=== PATIENT | male | born 1940 | race Caucasian/White ===

== ENCOUNTER → 2016-11-17 | Outpatient (CLI) | payer MEDICARE, OTHER ==
[2014-10-03 16:46] VITALS: BP 179/107
[~2016-11-17] MED LIST: ASPI-482 PO; EZET10TA3 PO; FISH1CAP PO; NIAC500T9 PO; OLMESARTAN 10 MG; SOTA80TA PO; TEMA15CA PO; WARF5TAB7 PO
--- NOTE | 2016-11-17 12:46 | RAD ---
PROCEDURE MR of the left knee HISTORY Chronic knee pain. COMPARISON None TECHNIQUE Routine multiplanar sequences are obtained. FINDINGS Degenerative tear of the medial meniscus. No evidence of a lateral meniscal tear. Anterior and posterior cruciate ligaments are intact. Medial collateral ligament is intact. Iliotibial band unremarkable. Fibular collateral ligament, biceps femoris tendon and popliteus tendon are intact. The extensor mechanism is intact. Severe chondromalacia at the medial joint compartment. Mild chondromalacia at the medial patella. Moderate to severe chondromalacia at the lower femoral trochlea. There is an intraosseous cyst at the lateral tibial plateau adjacent to the tibiofibular joint. There is also a small extraosseous component of the cyst. Small Alves cyst. Mild prepatellar subcutaneous edema. No bone destruction or acute fracture. IMPRESSION 1. Primary osteoarthritis. 2. Medial meniscal tear. Electronically signed by: Paul Flores MD (Nov 17, 2016 12:45:22)
== END | disposition home or self-care (01) ==
LOC: MRI 11:16
PROVIDERS: ATTEND Orthopaedic Surgery
DX: M17.12 Unilateral primary osteoarthritis, left knee (principal); S83.242A Other tear of medial meniscus, current injury, left knee, initial encounter
CPT/HCPCS: 73721

== ENCOUNTER → 2016-11-28 | Outpatient (CLI) | payer MEDICARE, OTHER ==
[2014-10-03 16:46] VITALS: BP 179/107
[~2016-11-28] MED LIST changes: +BISA-42 PO; +FLUT16SP NS; +FLUT1DIS3 IH; +OLME20TA PO; +OXYC5TAB PO; +PROVENTIL HFA6.7 GM IH
[2016-11-28 13:43] LABS: BASO % 1 % (0-3); EOS % 5 % (0-3); HEMATOCRIT 45.8 % (39.0-53.0); HEMOGLOBIN 15.1 g/dL (13.0-17.5); LYMPH # 1.4 x10^3/uL (1.0-4.8); LYMPH % 26 % (24-48); MEAN CORPUSCULAR HEMOGLOBIN 31 pg (25-35); MEAN CORPUSCULAR HGB CONC 33 g/dL (31-37); MEAN CORPUSCULAR VOLUME 94 fL (79-100); MONO % 7 % (0-9); NEUT % 61 % (31-73); PLATELET COUNT 165 x10^3/uL (140-400); RED CELL DISTRIBUTION WIDTH 14.2 % (11.5-14.5); WHITE BLOOD COUNT 5.5 x10^3/uL (4.0-11.0)
[2016-11-28 13:49] LABS: CALCIUM 8.6 mg/dL (8.5-10.1); CREATININE 1.1 mg/dL (0.7-1.3); GFR 65.3; POTASSIUM 4.3 mmol/L (3.5-5.1)
--- NOTE | 2016-11-28 14:17 | EKG ---
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 NON-SPECIFIC ST/T CHANGES Electronically Signed On 12-08-2016 8:29:10 CDT by Klever Rosas
== END | disposition home or self-care (01) ==
LOC: SURGPAT 12:56
PROVIDERS: ATTEND Orthopaedic Surgery
DX: S83.242D Other tear of medial meniscus, current injury, left knee, subsequent encounter (principal); W19.XXXA Unspecified fall, initial encounter; Y93.89 Activity, other specified; Y92.89 Other specified places as the place of occurrence of the external cause; Y99.8 Other external cause status
CPT/HCPCS: 36415; 80048; 85027; 93005

== ENCOUNTER 2016-12-05 05:47 | Day surgery (SDC) | payer MEDICARE, OTHER ==
[~2016-12-05] VITALS: Ht 175.3 cm; Wt 105.7 kg
[~2016-12-05 05:47] MED LIST changes: -OXYC5TAB PO
[2016-12-05] MEDS ORDERED: CEFAZOLIN 2GM PREMIX 50 ML IV PRN (06:00)
[2016-12-05] MEDS ORDERED: LIDOCAINE 1% 1 ML SYRINGE. ID PRN (07:00)
[2016-12-05] MEDS ORDERED: FENTANYL PF 100 MCG/2 ML VIAL. IV PRN ×2 (07:00)
[2016-12-05] MEDS ORDERED: IV RINGERS,LACTATED 1000ML 1,000 ML IV SCH (07:00)
[2016-12-05] MEDS ORDERED: PROCHLORPERAZINE 10 MG/2 ML VIAL. IV PRN (07:00)
[2016-12-05] MEDS ORDERED: DEXAMETHASONE SOD PHOS 20 MG/5 ML VIAL. ONE (07:21)
[2016-12-05] MEDS ORDERED: FENTANYL PF 100 MCG/2 ML VIAL. ONE (07:21)
[2016-12-05] MEDS ORDERED: ONDANSETRON PF 4 MG/2 ML VIAL. ONE (07:21)
[2016-12-05] MEDS ORDERED: SEVOFLURANE 61 TO 120 MINUTES. IH ONE (07:21)
[2016-12-05] MEDS ORDERED: LIDOCAINE 2% 100 MG/5 ML SYRINGE. ONE (07:21)
[2016-12-05] MEDS ORDERED: PROPOFOL 20 ML IV ONE (07:21)
[2016-12-05] MEDS ORDERED: MIDAZOLAM HCL/PF 2 MG/2 ML VIAL. ONE (07:23)
[2016-12-05] MEDS ORDERED: PHENYLEPHRINE in 0.9% NACL PF 1 MG/10 ML DISP.SYRIN. IV ONE (07:49)
[2016-12-05] MEDS ORDERED: BUPIVACAINE MPF 0.5% 30 ML VIAL. ONE (08:11)
--- NOTE | 2016-12-05 08:58 | PDOC ---
BRIEF OPERATIVE NOTE Date: Dec 05, 2016 Pre-Op Diagnosis medial meniscus tear Post-Op Diagnosis same Procedure Performed left knee scope partial medial menisectomy Surgeon [place] Anesthesia Type: General Blood Loss 2cc Findings above Complications none FRANKY DICKENS MD Dec 05, 2016 08:58
--- NOTE | 2016-12-05 09:00 | DISCH ---
DISCHARGE INSTRUCTIONS Condition on Discharge Condition on Discharge: Stable Activity After Discharge Activity Instructions for Disc: Activity as tolerated Weight Bearing Status after Di: Full weight bearing Diet after Discharge Diet after Discharge: Regular Wound Incision Care Wound/Incision Care: Ice to area for comfort, Change dressing Other wound/incision instructi: remove dressing 2 days may then shower Contacting the DRKaycee after DC Call your doctor for: Concerns you may have Follow-Up Follow up with: [facility] 7-10 days FRANKY DICKENS MD Dec 05, 2016 09:00
[2016-12-05] MEDS ORDERED: OXYC5TAB PO (09:04)
[2016-12-05] MEDS ORDERED: OXYCODONE IR 5 MG TABLET. PO PRN (09:30)
[2016-12-05 09:39] VITALS: BP 155/93
--- NOTE | 2016-12-08 12:14 | OP ---
DATE OF SURGERY: 12/05/2016 PREOPERATIVE DIAGNOSIS: Medial meniscus tear. POSTOPERATIVE DIAGNOSIS: Medial meniscus tear. PROCEDURE: Left knee arthroscopy, partial medial meniscectomy. SURGEON: Jovani Lindo M.D. ANESTHESIA: General. ESTIMATED BLOOD LOSS: 5 mL. COMPLICATIONS: None. OPERATIVE INDICATIONS: The patient is a 76-year-old male with a sudden onset of left knee pain, unresponsive to nonoperative treatment. MRI confirmed the clinical suspicion of meniscus tear. I had gone over with him the typical operative arthroscopic treatment of this condition and the fact that while typically the mechanical aspect of the meniscus tear is well treated and symptoms typically resolved, any degenerative changes of course cannot be done with this procedure and would need to be treated as ongoing symptoms required. We also covered the possibility of nerve or blood vessel damage, infection, continued pain as above, medical, or other anesthetic complications including blood clots. It is noted that he is on Coumadin, which was stopped with the current procedure. All his questions were answered. Consent was obtained and he agrees to proceed with operative evaluation and treatment. DESCRIPTION OF PROCEDURE: The patient was identified, procedure verified, patient placed in the supine position on the operating table. After adequate amounts of general endotracheal anesthesia were administered, the left lower extremity was prepped and draped in the standard sterile fashion and after timeout was performed, the patient and procedure identified and verified, thigh tourniquet was inflated to 350 mmHg. A lateral portal was established, medial portal established using spinal needle localization, and the knee joint was systematically examined. Overall, patellofemoral articulation was noted to be in good condition with good tracking, minimal chondromalacia, no loose bodies noted in the gutters or suprapatellar pouch. As expected, complex tear of posterior horn of medial meniscus was found involving the posterior horn and root area. The meniscus was trimmed back to a stable rim of tissue. Eliminating any stress risers, approximately 50-60% of the meniscus tissue was in fact removed. He did have some grade 3 chondromalacia medial femoral condyle, but no full-thickness defect noted. ACL was probed and found to be intact as was the lateral meniscus. The knee was again toured to make sure no loose bodies or other pathology noted. Joint was drained of arthroscopic fluid. Portals closed with nylon suture. He was infused with 30 mL of 0.5% plain Marcaine. Sterile compressive dressings were applied. Toes were noted to be warm and pink following deflation of the tourniquet. The patient was extubated and transferred to postop holding in stable condition having tolerated the procedure well. JOVANI LINDO MD DR: UMM/farideh JOB#: [id number] / [id number] ROALND Brar MD
== END 2016-12-05 10:30 | disposition home or self-care (01) ==
LOC: SURG 05:47
PROVIDERS: ATTEND Orthopaedic Surgery
DX: S83.232A Complex tear of medial meniscus, current injury, left knee, initial encounter (principal); M94.20 Chondromalacia, unspecified site; E78.00 Pure hypercholesterolemia, unspecified; I48.91 Unspecified atrial fibrillation; I10 Essential (primary) hypertension; J44.9 Chronic obstructive pulmonary disease, unspecified; M19.90 Unspecified osteoarthritis, unspecified site; X58.XXXA Exposure to other specified factors, initial encounter; Y93.9 Activity, unspecified; Y92.9 Unspecified place or not applicable
CPT/HCPCS: 29881; J0690; J1100; J2250; J2370; J2405; J2704; J3010; J3490

== ENCOUNTER → 2017-08-28 | Outpatient (CLI) | payer MEDICARE, OTHER | END | disposition home or self-care (01) | LOC: CT 12:11 | DX: J84.89 Other specified interstitial pulmonary diseases (principal); J98.11 Atelectasis | CPT/HCPCS: 71250 ==

== ENCOUNTER → 2017-09-18 | Outpatient (CLI) | payer MEDICARE, OTHER ==
[2017-09-18] MEDS: REGADENOSON 0.4 MG/5 ML DISP.SYRIN. IV ×2 (11:04)
== END | disposition home or self-care (01) ==
LOC: NM 08:35
DX: I25.119 Atherosclerotic heart disease of native coronary artery with unspecified angina pectoris (principal); M54.6 Pain in thoracic spine; J44.9 Chronic obstructive pulmonary disease, unspecified; I10 Essential (primary) hypertension; Z95.0 Presence of cardiac pacemaker; Z87.891 Personal history of nicotine dependence; Z79.01 Long term (current) use of anticoagulants
CPT/HCPCS: 78452; 93017; 96374; 96375; 96376; A9500; J2785

== ENCOUNTER 2017-11-08 10:08 | Inpatient (IN) | payer MEDICARE, OTHER ==
[2017-11-08 10:27] LABS: ADD MAN DIFF? NO
[2017-11-08 10:33] LABS: BASO % 1 % (0-3); EOS # 0.3 x10^3/uL (0.0-0.7); EOS % 5 % (0-3); HEMATOCRIT 48.3 % (39.0-53.0); HEMOGLOBIN 16.2 g/dL (13.0-17.5); LYMPH % 17 % (24-48); MEAN CORPUSCULAR HEMOGLOBIN 32 pg (25-35); MEAN CORPUSCULAR HGB CONC 34 g/dL (31-37); MEAN CORPUSCULAR VOLUME 94 fL (79-100); MONO # 0.4 x10^3/uL (0.0-1.1); MONO % 7 % (0-9); NEUT % 71 % (31-73); PLATELET COUNT 187 x10^3/uL (140-400); RED BLOOD COUNT 5.12 x10^6/uL (4.30-5.70); RED CELL DISTRIBUTION WIDTH 13.8 % (11.5-14.5); WHITE BLOOD COUNT 5.6 x10^3/uL (4.0-11.0)
[2017-11-08 10:38] LABS: ANION GAP 7 (6-14); BLOOD UREA NITROGEN 17 mg/dL (8-26); CALCIUM 9.1 mg/dL (8.5-10.1); CARBON DIOXIDE 32 mmol/L (21-32); CHLORIDE 103 mmol/L (98-107); CREATININE 1.1 mg/dL (0.7-1.3); GFR 65.1; GLUCOSE 105 mg/dL (70-99); POTASSIUM 3.8 mmol/L (3.5-5.1); SODIUM 142 mmol/L (136-145)
[2017-11-08 10:39] LABS: INR 1.6 (0.8-1.1); PROTHROMBIN TIME PATIENT 18.6 SEC (11.7-14.0)
[2017-11-08 10:44] LABS: ALBUMIN 4.1 g/dL (3.4-5.0); ALK PHOS 80 U/L (46-116); ALT (SGPT) 32 U/L (16-63); AST (SGOT) 21 U/L (15-37); DIRECT BILIRUBIN 0.2 mg/dL (0.0-0.2); LIPASE 58 U/L (73-393); MAGNESIUM 2.1 mg/dL (1.8-2.4); TOTAL BILIRUBIN 1.1 mg/dL (0.2-1.0); TOTAL PROTEIN 7.6 g/dL (6.4-8.2)
[2017-11-08 10:52] LABS: TROPONINI < 0.017 ng/mL (0.000-0.055)
[2017-11-08 10:54] LABS: NT-PRO BNP 212 pg/mL (0-449)
[2017-11-08 10:54] LABS: CKMB INDEX 0.8 % (0-4); CKMB MASS 1.2 ng/mL (0.0-3.6); CREATINE KINASE 148 U/L (39-308)
[2017-11-08] MEDS ORDERED: ONDANSETRON PF 4 MG/2 ML VIAL. IV (11:45)
[2017-11-08] MEDS: ASPIRIN 325 MG TABLET PO (12:21)
[2017-11-08 15:10] LABS: TROPONINI < 0.017 ng/mL (0.000-0.055)
[2017-11-08] MEDS ORDERED: BISACODYL 5 MG TABLET.DR. PO (17:00)
[2017-11-08] MEDS ORDERED: NON FORMULARY ITEM (Albuterol Sulfate (Proventil Hfa Inhaler) 1 PUFF) IH (17:00)
[2017-11-08] MEDS ORDERED: ALBUTEROL SULFATE 2.5 MG/3 ML NEBU. NEB (17:15)
[2017-11-08] MEDS: WARFARIN 4 MG TABLET. PO (17:32)
[2017-11-08 18:49] LABS: TROPONINI < 0.017 ng/mL (0.000-0.055)
[2017-11-08] MEDS: FLUTICASONE 50MCG/NASAL SPRAY 16GM BOTTLE. NS (21:00)
[2017-11-08] MEDS: SOTALOL 80 MG TABLET. PO (21:12)
[2017-11-08] MEDS: TEMAZEPAM 15 MG CAPSULE PO (21:12)
[2017-11-09 08:31] LABS: ADD MAN DIFF? NO
[2017-11-09 08:38] LABS: BASO % 1 % (0-3); EOS # 0.3 x10^3/uL (0.0-0.7); EOS % 5 % (0-3); HEMATOCRIT 45.6 % (39.0-53.0); HEMOGLOBIN 15.4 g/dL (13.0-17.5); LYMPH # 1.3 x10^3/uL (1.0-4.8); LYMPH % 23 % (24-48); MEAN CORPUSCULAR HEMOGLOBIN 32 pg (25-35); MEAN CORPUSCULAR HGB CONC 34 g/dL (31-37); MEAN CORPUSCULAR VOLUME 93 fL (79-100); MONO # 0.5 x10^3/uL (0.0-1.1); MONO % 9 % (0-9); NEUT # 3.5 x10^3uL (1.8-7.7); NEUT % 63 % (31-73); PLATELET COUNT 182 x10^3/uL (140-400); RED BLOOD COUNT 4.88 x10^6/uL (4.30-5.70); WHITE BLOOD COUNT 5.7 x10^3/uL (4.0-11.0)
[2017-11-09 09:06] LABS: INR 1.7 (0.8-1.1); PROTHROMBIN TIME PATIENT 18.9 SEC (11.7-14.0)
[2017-11-09 09:08] LABS: ANION GAP 6 (6-14); BLOOD UREA NITROGEN 12 mg/dL (8-26); CALCIUM 8.8 mg/dL (8.5-10.1); CARBON DIOXIDE 31 mmol/L (21-32); CHLORIDE 105 mmol/L (98-107); CHOLESTEROL 151 mg/dL (0-200); CREATININE 0.9 mg/dL (0.7-1.3); GLUCOSE 109 mg/dL (70-99); HDLC 35 mg/dL (40-60); LDLC 80 mg/dL (0-100); NON-HDL CHOLESTEROL 116 mg/dL (0-129); POTASSIUM 3.8 mmol/L (3.5-5.1); SODIUM 142 mmol/L (136-145); TRIGLYCERIDES 179 mg/dL (0-150); VLDLC 36 mg/dL (0-40)
[2017-11-09 09:19] LABS: CHOLESTEROL/HDL RATIO 4.3
[2017-11-09] MEDS: EZETIMIBE 10 MG TABLET. PO (12:23)
[2017-11-09] MEDS: LOSARTAN POTASSIUM 50 MG TABLET. PO (12:24)
[2017-11-09] MEDS: ASPIRIN ENTERIC COATED 81 MG TABLET.DR. PO (12:24)
[2017-11-09] MEDS: SOTALOL 80 MG TABLET. PO ×2 (12:24→21:36)
[2017-11-09] MEDS: FLUTICASONE 50MCG/NASAL SPRAY 16GM BOTTLE. NS ×2 (17:29→21:35)
[2017-11-09] MEDS: ALPRAZolam 0.5 MG TABLET PO (17:41)
[2017-11-09] MEDS: WARFARIN 4 MG TABLET. PO (17:42)
[2017-11-09] MEDS: TEMAZEPAM 15 MG CAPSULE PO (21:35)
[2017-11-10] MEDS: EZETIMIBE 10 MG TABLET. PO (07:16)
[2017-11-10] MEDS: ASPIRIN ENTERIC COATED 81 MG TABLET.DR. PO (07:16)
[2017-11-10] MEDS: ALPRAZolam 0.5 MG TABLET PO (07:16)
[2017-11-10] MEDS: FLUTICASONE 50MCG/NASAL SPRAY 16GM BOTTLE. NS (07:17)
[2017-11-10] MEDS: LOSARTAN POTASSIUM 50 MG TABLET. PO (07:24)
[2017-11-10] MEDS: SOTALOL 80 MG TABLET. PO (07:24)
[2017-11-10] MEDS: WARFARIN 4 MG TABLET. PO (16:05)
== END 2017-11-10 19:00 | disposition home or self-care (01) | DRG 303 ==
LOC: ER 10:08 → 5 NORTH 11:00
DX: I25.119 Atherosclerotic heart disease of native coronary artery with unspecified angina pectoris (principal); I48.91 Unspecified atrial fibrillation; E66.9 Obesity, unspecified; Z68.31 Body mass index [BMI] 31.0-31.9, adult; F41.9 Anxiety disorder, unspecified; I10 Essential (primary) hypertension; G47.00 Insomnia, unspecified; I25.2 Old myocardial infarction; Z79.01 Long term (current) use of anticoagulants; Z82.49 Family history of ischemic heart disease and other diseases of the circulatory system; Z85.820 Personal history of malignant melanoma of skin; Z95.0 Presence of cardiac pacemaker; Z95.1 Presence of aortocoronary bypass graft; Z95.5 Presence of coronary angioplasty implant and graft; Z88.6 Allergy status to analgesic agent; Z88.1 Allergy status to other antibiotic agents; Z88.8 Allergy status to other drugs, medicaments and biological substances
CPT/HCPCS: 36415; 71045; 78452; 80048; 80061; 80076; 82553; 83690; 83735; 83880; 84484; 85025; 85610; 93005; 93017; 96374; 96376; 99285; 99285-25; A9500

== ENCOUNTER → 2018-09-24 | Outpatient (CLI) | payer MEDICARE, OTHER ==
[2017-11-09 23:00] VITALS: BP 144/72
[~2018-09-24] MED LIST changes: +ALBU2.5V8 IH; +ALPR0.5T PO; +EZET10TA18 PO; -EZET10TA3 PO; -OLME20TA PO; +OLME20TA17 PO; +OXYC5TAB4 PO; -PROVENTIL HFA6.7 GM IH; -SOTA80TA PO; +SOTA80TA48 PO; +WARF-31 PO; -WARF5TAB7 PO
--- NOTE | 2018-09-24 11:15 | RAD ---
Examination: CT CHEST WO CONTRAST History: F/U LUNG NODULES PREV SENT Comparison/Correlation: 08/28/2017 CT chest without contrast Findings: Axial images of chest were obtained without contrast. Sagittal and coronal reformatted images were provided. Dual-lead left-sided pacemaker and sternal wires are present. No enlarged thoracic lymph nodes. Coronary arterial calcification is present. Stent material involving the proximal left anterior descending artery distribution appears be present. No pericardial effusion. No pleural effusion. Calcified granulomas present at the lateral left upper lung field. Mild bilateral lower lobe bronchiectasis is present. Left lower lobe calcified granuloma is present. A few punctate left lower lobe nodules are present and these are stable. Partially visualized upper abdomen is unremarkable. Epicardial leads are present. Impression: Stable pulmonary nodules. No new or suspicious pulmonary nodule. Electronically signed by: Hugh Medina MD (09/24/2018 11:11 AM) [facility]
== END | disposition home or self-care (01) ==
LOC: CT 09:51
PROVIDERS: ATTEND Internal Medicine Critical Care Medicine
DX: R91.1 Solitary pulmonary nodule (principal); I25.10 Atherosclerotic heart disease of native coronary artery without angina pectoris; Z88.8 Allergy status to other drugs, medicaments and biological substances
CPT/HCPCS: 71250

== ENCOUNTER → 2019-01-19 | Outpatient (CLI) | payer MEDICARE, OTHER ==
[2017-11-09 23:00] VITALS: BP 144/72
--- NOTE | 2019-01-19 11:59 | CARD ---
MR#: [id number] Date of Study: 01/19/2019 Ordering Physician: ROD CHRISTY, Referring Physician: ROD CHRISTY Tech: Larissa Delgado RDCS APPROVED REPORT EXAM: Two-dimensional and M-mode echocardiogram with Doppler and color Doppler. Other Information Quality : Good INDICATION Cardiac Disease: CAD Surgery/Intervention CABG: Date: 10/2002 2D DIMENSIONS RVDd2.2 (2.9-3.5cm)Left Atrium(2D)3.1 (1.6-4.0cm) IVSd1.0 (0.7-1.1cm)Aortic Root(2D)3.2 (2.0-3.7cm) LVDd3.4 (3.9-5.9cm)LVOT Diameter2.1 (1.8-2.4cm) PWd0.8 (0.7-1.1cm)LVDs2.6 (2.5-4.0cm) FS (%) 30.0 %SV22.6 ml LVEF(%)55.0 (>50%) Aortic Valve AoV Peak Irvin.84.3cm/sAoV VTI14.2cm AO Peak GR.2.8mmHgLVOT Peak Irvin.78.5cm/s LVOT VTI 16.97cmAO Mean GR.1mmHg SERGIO (VMAX)3.06fv2FIT (VTI)4.17cm2 Mitral Valve MV E Jktlrzgb80.0cm/sMV DECEL SWZY839ed MV A Hjsowofh69.8cm/sMV GSL36wd E/A Ratio0.7MVA (PHT)3.71cm2 TDI E/Lateral E'11.4E/Medial E'12.3 Tricuspid Valve TR P. Stjyaawu373pw/sRAP MLJGXZRO9jsDb TR Peak Gr.63vpNsVUNI33qlLv Pulmonary Vein S1 Csgicjiv70.2cm/sD2 Ycblyimi17.5cm/s LEFT VENTRICLE The left ventricle is normal size. There is mild concentric left ventricular hypertrophy. The left ve ntricular systolic function is normal and the ejection fraction is within normal range. The Ejection Fraction is 55-60%. Septal motion consistent with post-operative state. Otherwise, grossly normal wal l motion. Transmitral Doppler flow pattern is Grade I-abnormal relaxation pattern. RIGHT VENTRICLE The right ventricle is normal size. The right ventricular systolic function is normal. ATRIA The left atrium size is normal. The right atrium size is normal. The interatrial septum is intact wit h no evidence for an atrial septal defect or patent foramen ovale as noted on 2-D or Doppler imaging. AORTIC VALVE The aortic valve is calcified but opens well. Doppler and Color Flow revealed no significant aortic r egurgitation. There is no significant aortic valvular stenosis. MITRAL VALVE The mitral valve is calcified but opens well. There is no evidence of mitral valve prolapse. There is no mitral valve stenosis. Doppler and Color-flow revealed trace mitral regurgitation. TRICUSPID VALVE The tricuspid valve is normal in structure and function. Doppler and Color Flow revealed trace tricus pid regurgitation. The PA pressure was estimated at 24 mmHg. There is no tricuspid valve stenosis. PULMONIC VALVE The pulmonic valve is not well visualized. Doppler and Color Flow revealed no pulmonic valvular regur gitation. There is no pulmonic valvular stenosis. GREAT VESSELS The aortic root is normal in size. The ascending aorta is mildly dilated at 3.6 cm. The IVC is normal in size and collapses >50% with inspiration. PERICARDIAL EFFUSION There is no evidence of significant pericardial effusion. Critical Notification Critical Value: No <Conclusion> The left ventricular systolic function is normal and the ejection fraction is within normal range. Th e Ejection Fraction is 55-60%. Septal motion consistent with post-operative state. Otherwise, grossly normal wall motion. The ascending aorta is mildly dilated at 3.6 cm. Signed by : Klever Rosas, Electronically Approved : 01/19/2019 11:58:55
== END | disposition home or self-care (01) ==
LOC: ECHO 10:44
PROVIDERS: ATTEND Internal Medicine Cardiovascular Disease
DX: I25.10 Atherosclerotic heart disease of native coronary artery without angina pectoris (principal); I51.7 Cardiomegaly
CPT/HCPCS: 93306

== ENCOUNTER 2019-06-13 06:19 | Inpatient (IN) | payer MEDICARE, OTHER ==
[2019-06-13] VITALS (15 sets, daily range): BP systolic 137–177; BP diastolic 76–124
[~2019-06-13] VITALS: Ht 175.3 cm; Wt 103.9 kg
[~2019-06-13 06:19] MED LIST changes: -EZET10TA18 PO; +EZET10TA20 PO
[2019-06-13 06:41] LABS: BASO % 1 % (0-3); EOS # 0.3 x10^3/uL (0.0-0.7); EOS % 5 % (0-3); HEMATOCRIT 45.9 % (39.0-53.0); HEMOGLOBIN 15.4 g/dL (13.0-17.5); LYMPH # 1.4 x10^3/uL (1.0-4.8); LYMPH % 22 % (24-48); MEAN CORPUSCULAR HEMOGLOBIN 31 pg (25-35); MEAN CORPUSCULAR HGB CONC 34 g/dL (31-37); MEAN CORPUSCULAR VOLUME 94 fL (79-100); MONO # 0.6 x10^3/uL (0.0-1.1); MONO % 9 % (0-9); NEUT # 4.2 x10^3/uL (1.8-7.7); NEUT % 64 % (31-73); PLATELET COUNT 174 x10^3/uL (140-400); RED BLOOD COUNT 4.91 x10^6/uL (4.30-5.70); RED CELL DISTRIBUTION WIDTH 13.6 % (11.5-14.5); WHITE BLOOD COUNT 6.6 x10^3/uL (4.0-11.0)
--- NOTE | 2019-06-13 06:47 | PHYS DOC ---
Past Medical History Past Medical History: A-Fib, Anxiety, CAD, Cancer, High Cholesterol, Hypertension, Other Additional Past Medical Histor: insomnia Past Surgical History: Angioplasty, Coronary Bypass Surgery, Pacemaker, Other Additional Past Surgical Histo: melonoma removed several times, fiber cyst removed from tongue Alcohol Use: None Drug Use: None Adult General Chief Complaint Chief Complaint: CHEST PAIN [facility] HPI Patient is a 79 year old male with history of coronary artery disease status post CABG in 2002, hypertension, dyslipidemia who presents via EMS with com plaining of chest pain. Patient complaining of nonexertional left lower chest pressure pain that started at 2000 last night that radiation. Patient complaining of nausea and dizziness [pain 8/10. Patient was able to fall asleep with taking sleeping medication and then woke up at around 2 AM to go to the bathroom as it has the same pain and was not able to fall asleep until 5:30 AM when he informed his and she was 911. Patient had 324 mg of aspirin and 1 nitroglycerin given by EMS and blood pressure dropped from 170s to 105 with resolving the pain completely. 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 Review of Systems Review of Systems Constitutional: Denies fever or chills [] Eyes: Denies change in visual acuity, redness, or eye pain [] HENT: Denies nasal congestion or sore throat [] Respiratory: Denies cough or shortness of breath [] Cardiovascular: No additional information not addressed in HPI [] GI: Denies abdominal pain, vomiting, bloody stools or diarrhea, reports nausea[] : Denies dysuria or hematuria [] Musculoskeletal: Denies back pain or joint pain [] Integument: Denies rash or skin lesions [] Neurologic: Denies headache, focal weakness or sensory changes [] Endocrine: Denies polyuria or polydipsia [] All other systems were reviewed and found to be within normal limits, except as documented in this note. Allergies Allergies Allergies Coded Allergies Type Severity Reaction Last Updated Verified Iodine and Iodide Containing Produc Allergy Severe Swelling 11/08/17 Yes naproxen Allergy Severe throat swells and hives 11/10/17 Yes acetaminophen Allergy Intermediate hives 11/10/17 Yes hydrocodone Allergy Intermediate hives 11/10/17 Yes lisinopril Allergy Intermediate cough 11/10/17 Yes Physical Exam Physical Exam Constitutional: Well developed, well nourished, mild distress, non-toxic appearance. [] HENT: Normocephalic, atraumatic. Eyes: PERRLA, EOMI, conjunctiva normal, no discharge. [] Neck: Normal range of motion, no tenderness, supple, no stridor. [] Cardiovascular:Heart rate regular rhythm, no murmur [] Lungs & Thorax: Bilateral breath sounds clear to auscultation [] Abdomen: Bowel sounds normal, soft, no tenderness, no masses, no pulsatile masses. [] Skin: Warm, dry, no erythema, no rash. [] Back: No tenderness, no CVA tenderness. [] Extremities: No tenderness, no cyanosis, no clubbing, ROM intact, no edema. [] Neurologic: Alert and oriented X 3, no focal deficits noted. [] Psychologic: Affect normal, judgement normal, mood normal. [] Current Patient Data Vital Signs Vital Signs Date Time Temp Pulse Resp B/P (MAP) Pulse Ox O2 Delivery O2 Flow Rate FiO2 06/13/19 06:52 63 137/78 (97) 98 Room Air 06/13/19 06:22 98.1 20 98.1 Lab Values Laboratory Tests Test 06/13/19 06:30 White Blood Count 6.6 x10^3/uL (4.0-11.0) Red Blood Count 4.91 x10^6/uL (4.30-5.70) Hemoglobin 15.4 g/dL (13.0-17.5) Hematocrit 45.9 % (39.0-53.0) Mean Corpuscular Volume 94 fL (79-100) Mean Corpuscular Hemoglobin 31 pg (25-35) Mean Corpuscular Hemoglobin Concent 34 g/dL (31-37) Red Cell Distribution Width 13.6 % (11.5-14.5) Platelet Count 174 x10^3/uL (140-400) Neutrophils (%) (Auto) 64 % (31-73) Lymphocytes (%) (Auto) 22 % (24-48) L Monocytes (%) (Auto) 9 % (0-9) Eosinophils (%) (Auto) 5 % (0-3) H Basophils (%) (Auto) 1 % (0-3) Neutrophils # (Auto) 4.2 x10^3/uL (1.8-7.7) Lymphocytes # (Auto) 1.4 x10^3/uL (1.0-4.8) Monocytes # (Auto) 0.6 x10^3/uL (0.0-1.1) Eosinophils # (Auto) 0.3 x10^3/uL (0.0-0.7) Basophils # (Auto) 0.0 x10^3/uL (0.0-0.2) Prothrombin Time 14.3 SEC (11.7-14.0) H Prothrombin Time INR 1.1 (0.8-1.1) Sodium Level 146 mmol/L (136-145) H Potassium Level 3.8 mmol/L (3.5-5.1) Chloride Level 107 mmol/L (98-107) Carbon Dioxide Level 30 mmol/L (21-32) Anion Gap 9 (6-14) Blood Urea Nitrogen 15 mg/dL (8-26) Creatinine 1.1 mg/dL (0.7-1.3) Estimated GFR (Cockcroft-Gault) 64.7 BUN/Creatinine Ratio 14 (6-20) Glucose Level 109 mg/dL (70-99) H Calcium Level 8.6 mg/dL (8.5-10.1) Magnesium Level 2.0 mg/dL (1.8-2.4) Total Bilirubin 1.0 mg/dL (0.2-1.0) Aspartate Amino Transferase (AST) 18 U/L (15-37) Alanine Aminotransferase (ALT) 27 U/L (16-63) Alkaline Phosphatase 56 U/L (46-116) Creatine Kinase 57 U/L (39-308) Troponin I Quantitative < 0.017 ng/mL (0.000-0.055) TY-Odi-O-Type Natriuretic Peptide 145 pg/mL (0-449) Total Protein 6.5 g/dL (6.4-8.2) Albumin 3.8 g/dL (3.4-5.0) Albumin/Globulin Ratio 1.4 (1.0-1.7) Lipase 30 U/L (73-393) L Laboratory Tests 06/13/19 06:30 Laboratory Tests 06/13/19 06:30 EKG EKG EKG interpreted by me. EKG at 0 632 showed sinus rhythm at rate of 76 with multiple artifact without acute ST and T-wave elevation, Q waves in anteroseptal leads. Radiology/Procedures Radiology/Procedures [][facility] [address] [place] [address] IMAGING REPORT Signed PATIENT: HÉCTOR GARCIA ACCOUNT: [id number] : 1940 LOCATION: [address] [place] [address] AGE: 79 SEX: M EXAM STATUS: ADM IN ORD. PHYSICIAN: BLANQUITA VALDES MD REASON: chest pain PROCEDURE: PORTABLE CHEST 1V PORTABLE CHEST 1V History: Chest pain Comparison: November 08, 2017 Findings: Minimal left basilar linear atelectasis or scarring. No pneumothorax. No consolidation or pleural effusion. Normal heart size. Left-sided pacemaker, unchanged. Prior median sternotomy. Bilateral acromioclavicular DJD. Impression: 1. No acute cardiopulmonary process. Electronically signed by: Kyle Akbar DO (06/13/2019 7:58 AM) [facility] DICTATED and SIGNED BY: KYLE AKBAR DO DATE: 06/13/19 0758 Course & Med Decision Making Course & Med Decision Making Pertinent Labs and Imaging studies reviewed. (See chart for details) Evaluation of patient in ER showed 79-year-old male patient with heart score of 6 and chest pain since last night. Patient had unremarkable labs and physical exam and EKG. Patient was chest pain free in ER.Patient requiring admission for further evaluation and treatment. Discussed with Dr. Rosenbaum who is in agreement with admission. Discussed findings and plan with patient and family, who acknowledge understanding and agreement. Dragon Disclaimer Dragon Disclaimer This electronic medical record was generated, in whole or in part, using a voice recognition dictation system. Departure Departure Impression: Primary Impression: Acute chest pain Disposition: ADMITTED INPATIENT (at 0649) Admitting Physician: CORNELL (Dr. Rosenbaum accepted admission at 0648) Condition: IMPROVED Referrals: ROLAND MAHER MD (PCP) The HEART Score for CP Pts HEART Score for Chest Pain: HEART Score for Chest Pain Response (Comments) Value History Moderately Suspicious 1 ECG Nonspecific Repolarizatio 1 Age > 65 2 Risk Factors >3 Risk Factors or Hx CAD 2 Troponin < Normal Limit 0 Total 6 Risk Factors: Risk Factors: DM, Current or recent (<one month) smoker, HTN, HLP, family history of CAD, obesity. Risk Scores: Score 0 - 3: 2.5% MACE over next 6 weeks - Discharge Home Score 4 - 6: 20.3% MACE over next 6 weeks - Admit for Clinical Observation Score 7 - 10: 72.7% MACE over next 6 weeks - Early Invasive Strategies BLANQUITA VALDES MD Jun 13, 2019 06:47
[2019-06-13 06:55] LABS: CALCIUM 8.6 mg/dL (8.5-10.1); CREATININE 1.1 mg/dL (0.7-1.3); GFR 64.7; POTASSIUM 3.8 mmol/L (3.5-5.1)
[2019-06-13 06:57] LABS: PROTHROMBIN TIME PATIENT 14.3 SEC (11.7-14.0)
[2019-06-13 07:01] LABS: ALBUMIN 3.8 g/dL (3.4-5.0); ALBUMIN/GLOBULIN RATIO 1.4 (1.0-1.7); TOTAL PROTEIN 6.5 g/dL (6.4-8.2)
--- NOTE | 2019-06-13 07:05 | EKG ---
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
--- NOTE | 2019-06-13 08:02 | RAD ---
PORTABLE CHEST 1V History: Chest pain Comparison: November 08, 2017 Findings: Minimal left basilar linear atelectasis or scarring. No pneumothorax. No consolidation or pleural effusion. Normal heart size. Left-sided pacemaker, unchanged. Prior median sternotomy. Bilateral acromioclavicular DJD. Impression: 1. No acute cardiopulmonary process. Electronically signed by: Kyle Akbar DO (06/13/2019 7:58 AM) [facility]
--- NOTE | 2019-06-13 08:05 | NUR ---
The patient, HÉCTOR GARCIA, 79 y/o, M admitted by KAYODE BARNHART MD, was given written information regarding hospital policies, unit procedures and contact persons. Valuables were checked and at bedside.
[2019-06-13] MEDS ORDERED: LIDOCAINE 1% PF 2 ML VIAL. ONE (11:03)
[2019-06-13] MEDS ORDERED: MIDAZOLAM HCL/PF 2 MG/2 ML VIAL. ONE (11:06)
[2019-06-13] MEDS ORDERED: diphenhydrAMINE 50 MG/ML VIAL ONE (11:06)
[2019-06-13] MEDS ORDERED: HEPARIN for IV BOLUS 10,000 UNIT/10 ML VIAL. ONE (11:06)
[2019-06-13] MEDS ORDERED: NITROGLYCERIN 200 MCG/2 ML SYRINGE FOR CATH/VASC LAB. ONE (11:06)
[2019-06-13] MEDS ORDERED: VERAPAMIL 5 MG/2 ML VIAL. ONE (11:06)
[2019-06-13] MEDS ORDERED: methylPREDNISolone SOD SUCC PF 125 MG/2 ML VIAL. ONE (11:06)
[2019-06-13] MEDS ORDERED: FAMOTIDINE 20 MG/2 ML VIAL ONE (11:06)
[2019-06-13] MEDS ORDERED: fentaNYL PF VIAL 100 MCG/2 ML VIAL ONE (11:06)
[2019-06-13] MEDS ORDERED: OXYB15TA PO (11:20)
[2019-06-13] MEDS ORDERED: BUDE10.2 IH (11:20)
[2019-06-13] MEDS ORDERED: APIX2.5T PO (11:20)
[2019-06-13] MEDS ORDERED: TAMS0.4C97 PO (11:20)
--- NOTE | 2019-06-13 11:24 | PDOC2 ---
CONSULT Date of Consult Date of Consult DATE: 06/13/19 TIME: 11:24 Reason for Consult Reason for Consult: Chest pain Referring Physician Referring Physician: Dr. Hodge Identification/Chief Complaint Chief Complaint Chest pain Source Source: Chart review, Patient History of Present Illness Reason for Visit: 79-year-old male with history of coronary artery disease s/p CABG in 2002, paroxysmal atrial fibrillation and sick sinus syndrome s/p permanent pacemaker implantation previously followed by Dr. Posadas presented stating that he had an episode of left-sided chest pressure associated with a shock like sensation not related to exertion. This was partially relieved with sublingual nitroglycerin given by EMS. He also complained of dyspnea on exertion that has been progressive lately. He denied any orthopnea/PND, palpitations or syncope. Past Medical History Cardiovascular: AFIB, CAD, HTN, [place] Pulmonary: Bronchitis Heme/Onc: Other Past Surgical History Past Surgical History: CABG Family History Family History: Coronary Artery Disease Current Problem List Problem List Problems Medical Problems: (1) Acute chest pain Status: Acute Current Medications Current Medications Current Medications Lidocaine HCl (Xylocaine-Mpf 1% 2ml Vial) 2 ml STK-MED ONCE .ROUTE ; Start 06/13/19 at 11:03; Stop 06/13/19 at 11:03; Status DC Heparin Sodium/ Sodium Chloride 500 ml @ As Directed STK-MED ONCE .ROUTE ; Start 06/13/19 at 11:03; Stop 06/13/19 at 11:03; Status DC Methylprednisolone Sodium Succinate (SOLU-Medrol 125MG VIAL) 125 mg STK-MED ONCE .ROUTE ; Start 06/13/19 at 11:06; Stop 06/13/19 at 11:06; Status DC Fentanyl Citrate (Fentanyl 2ml Vial) 100 mcg STK-MED ONCE .ROUTE ; Start 06/13/19 at 11:06; Stop 06/13/19 at 11:06; Status DC Midazolam HCl (Versed) 2 mg STK-MED ONCE .ROUTE ; Start 06/13/19 at 11:06; Stop 06/13/19 at 11:06; Status DC Heparin Sodium (Porcine) (Heparin Sodium) 10,000 unit STK-MED ONCE .ROUTE ; Start 06/13/19 at 11:06; Stop 06/13/19 at 11:06; Status DC Verapamil HCl (Verapamil) 5 mg STK-MED ONCE .ROUTE ; Start 06/13/19 at 11:06; Stop 06/13/19 at 11:06; Status DC Famotidine (Pepcid Vial) 20 mg STK-MED ONCE .ROUTE ; Start 06/13/19 at 11:06; Stop 06/13/19 at 11:07; Status DC Diphenhydramine HCl (Benadryl) 50 mg STK-MED ONCE .ROUTE ; Start 06/13/19 at 11:06; Stop 06/13/19 at 11:07; Status DC Nitroglycerin (Nitroglycerin) 200 mcg STK-MED ONCE .ROUTE ; Start 06/13/19 at 11:06; Stop 06/13/19 at 11:07; Status DC Active Scripts Active Reported Eliquis (Apixaban) 2.5 Mg Tablet 2.5 Mg PO BID Flomax (Tamsulosin Hcl) 0.4 Mg Cap.er.24h 1 Cap PO DAILY Oxybutynin Chloride Er (Oxybutynin Chloride) 15 Mg Tab.er.24 1 Tab PO HS Symbicort 160-4.5 Mcg Inhaler (Budesonide/Formoterol Fumarate) 10.2 Gm Hfa.aer.ad 2 Puff IH BID Dulcolax (Bisacodyl) 5 Mg Tablet.dr 5 Mg PO HS PRN Proventil Hfa Inhaler (Albuterol Sulfate) 6.7 Gm Hfa.aer.ad 2 Puff IH PRN Q4HRS PRN Benicar (Olmesartan Medoxomil) 20 Mg Tablet 20 Mg PO BID Aspir 81 (Aspirin) 81 Mg Tablet.dr 1 Tab PO HS Temazepam 15 Mg Capsule 30 Mg PO QHS Sotalol (Sotalol Hcl) 80 Mg Tablet 60 Mg PO BID Zetia (Ezetimibe) 10 Mg Tablet 10 Mg PO DAILY Allergies Allergies: Coded Allergies: Iodine and Iodide Containing Produc (Verified Allergy, Severe, Swelling, 11/08/17) naproxen (Verified Allergy, Severe, throat swells and hives, 11/10/17) acetaminophen (Verified Allergy, Intermediate, hives, 11/10/17) hydrocodone (Verified Allergy, Intermediate, hives, 11/10/17) takes oxycodone at home lisinopril (Verified Allergy, Intermediate, cough, 11/10/17) ROS PSYCHOLOGICAL ROS: No: Hallucinations Eyes: No Loss of vision HEENT: No: Epistaxis Respiratory: YES: Shortness of breath; No: Hemoptysis Cardiovascular: yes Chest Pain; No Palpitations Gastrointestinal: No Vomiting Genitourinary: No Hematuria Neurological: No Seizures Skin: No Rash Physical Exam General: Alert, Oriented X3 HEENT: Atraumatic Lungs: Clear to auscultation Heart: Regular rate Abdomen: Soft Extremities: No edema Psych/Mental Status: Mood NL Vitals VITALS Vital Signs Date Time Temp Pulse Resp B/P (MAP) Pulse Ox O2 Delivery O2 Flow Rate FiO2 06/13/19 11:00 97.9 63 18 150/85 (106) 95 Room Air 97.9 Labs Labs Laboratory Tests Test 06/13/19 06:30 White Blood Count 6.6 x10^3/uL (4.0-11.0) Red Blood Count 4.91 x10^6/uL (4.30-5.70) Hemoglobin 15.4 g/dL (13.0-17.5) Hematocrit 45.9 % (39.0-53.0) Mean Corpuscular Volume 94 fL (79-100) Mean Corpuscular Hemoglobin 31 pg (25-35) Mean Corpuscular Hemoglobin Concent 34 g/dL (31-37) Red Cell Distribution Width 13.6 % (11.5-14.5) Platelet Count 174 x10^3/uL (140-400) Neutrophils (%) (Auto) 64 % (31-73) Lymphocytes (%) (Auto) 22 % (24-48) Monocytes (%) (Auto) 9 % (0-9) Eosinophils (%) (Auto) 5 % (0-3) Basophils (%) (Auto) 1 % (0-3) Neutrophils # (Auto) 4.2 x10^3/uL (1.8-7.7) Lymphocytes # (Auto) 1.4 x10^3/uL (1.0-4.8) Monocytes # (Auto) 0.6 x10^3/uL (0.0-1.1) Eosinophils # (Auto) 0.3 x10^3/uL (0.0-0.7) Basophils # (Auto) 0.0 x10^3/uL (0.0-0.2) Prothrombin Time 14.3 SEC (11.7-14.0) Prothromb Time International Ratio 1.1 (0.8-1.1) Sodium Level 146 mmol/L (136-145) Potassium Level 3.8 mmol/L (3.5-5.1) Chloride Level 107 mmol/L (98-107) Carbon Dioxide Level 30 mmol/L (21-32) Anion Gap 9 (6-14) Blood Urea Nitrogen 15 mg/dL (8-26) Creatinine 1.1 mg/dL (0.7-1.3) Estimated GFR (Cockcroft-Gault) 64.7 BUN/Creatinine Ratio 14 (6-20) Glucose Level 109 mg/dL (70-99) Calcium Level 8.6 mg/dL (8.5-10.1) Magnesium Level 2.0 mg/dL (1.8-2.4) Total Bilirubin 1.0 mg/dL (0.2-1.0) Aspartate Amino Transf (AST/SGOT) 18 U/L (15-37) Alanine Aminotransferase (ALT/SGPT) 27 U/L (16-63) Alkaline Phosphatase 56 U/L (46-116) Creatine Kinase 57 U/L (39-308) Troponin I Quantitative < 0.017 ng/mL (0.000-0.055) JS-Exa-S-Type Natriuretic Peptide 145 pg/mL (0-449) Total Protein 6.5 g/dL (6.4-8.2) Albumin 3.8 g/dL (3.4-5.0) Albumin/Globulin Ratio 1.4 (1.0-1.7) Lipase 30 U/L (73-393) Laboratory Tests Test 06/13/19 06:30 White Blood Count 6.6 x10^3/uL (4.0-11.0) Red Blood Count 4.91 x10^6/uL (4.30-5.70) Hemoglobin 15.4 g/dL (13.0-17.5) Hematocrit 45.9 % (39.0-53.0) Mean Corpuscular Volume 94 fL (79-100) Mean Corpuscular Hemoglobin 31 pg (25-35) Mean Corpuscular Hemoglobin Concent 34 g/dL (31-37) Red Cell Distribution Width 13.6 % (11.5-14.5) Platelet Count 174 x10^3/uL (140-400) Neutrophils (%) (Auto) 64 % (31-73) Lymphocytes (%) (Auto) 22 % (24-48) Monocytes (%) (Auto) 9 % (0-9) Eosinophils (%) (Auto) 5 % (0-3) Basophils (%) (Auto) 1 % (0-3) Neutrophils # (Auto) 4.2 x10^3/uL (1.8-7.7) Lymphocytes # (Auto) 1.4 x10^3/uL (1.0-4.8) Monocytes # (Auto) 0.6 x10^3/uL (0.0-1.1) Eosinophils # (Auto) 0.3 x10^3/uL (0.0-0.7) Basophils # (Auto) 0.0 x10^3/uL (0.0-0.2) Prothrombin Time 14.3 SEC (11.7-14.0) Prothromb Time International Ratio 1.1 (0.8-1.1) Sodium Level 146 mmol/L (136-145) Potassium Level 3.8 mmol/L (3.5-5.1) Chloride Level 107 mmol/L (98-107) Carbon Dioxide Level 30 mmol/L (21-32) Anion Gap 9 (6-14) Blood Urea Nitrogen 15 mg/dL (8-26) Creatinine 1.1 mg/dL (0.7-1.3) Estimated GFR (Cockcroft-Gault) 64.7 BUN/Creatinine Ratio 14 (6-20) Glucose Level 109 mg/dL (70-99) Calcium Level 8.6 mg/dL (8.5-10.1) Magnesium Level 2.0 mg/dL (1.8-2.4) Total Bilirubin 1.0 mg/dL (0.2-1.0) Aspartate Amino Transf (AST/SGOT) 18 U/L (15-37) Alanine Aminotransferase (ALT/SGPT) 27 U/L (16-63) Alkaline Phosphatase 56 U/L (46-116) Creatine Kinase 57 U/L (39-308) Troponin I Quantitative < 0.017 ng/mL (0.000-0.055) EQ-Ulg-O-Type Natriuretic Peptide 145 pg/mL (0-449) Total Protein 6.5 g/dL (6.4-8.2) Albumin 3.8 g/dL (3.4-5.0) Albumin/Globulin Ratio 1.4 (1.0-1.7) Lipase 30 U/L (73-393) Assessment/Plan Assessment/Plan 1. Chest pain with mixed features. Myocardial infarction has been ruled out. His dyspnea on exertion without any clinical evidence for fluid overload is concerning for cardiac etiology. He has history of coronary artery disease and had undergone CABG in 2002 without any recent follow-up. We will proceed with cardiac catheterization and possible angioplasty. Risks and benefits were explained and he is agreeable. We will premedicate for dye allergy. Continue current secondary prevention measures. 2. Paroxysmal atrial fibrillation: Presently in sinus rhythm. Recent 2-D echo showed normal LV function. Continue eliquis for stroke prophylaxis. Continue sotalol for rhythm maintenance. 3. Hypertension: Blood pressure elevated. Resume home medications and titrate for better control. 4. Hyperlipidemia: ? statin intolerant, on zetia 5. SSS s/p PPM Implantation. Patient has not had any recent device check. We will have his device interrogated. Thank you for your consultation. ROD CHRISTY MD Jun 13, 2019 11:24
[2019-06-13] MEDS ORDERED: diphenhydrAMINE 50 MG/ML VIAL IVP ONE (11:25)
[2019-06-13] MEDS ORDERED: methylPREDNISolone SOD SUCC PF 125 MG/2 ML VIAL. IV ONE (11:25)
[2019-06-13] MEDS ORDERED: FAMOTIDINE 20 MG/2 ML VIAL IVP ONE (11:25)
[2019-06-13] MEDS ORDERED: IODIXANOL 320 MG/ML 100 ML VIAL. IART ONE (11:45)
[2019-06-13] MEDS ORDERED: LIDOCAINE 1% PF 2 ML VIAL. INJ ONE (11:45)
[2019-06-13] MEDS ORDERED: VERAPAMIL 5 MG/2 ML VIAL. IART ONE (11:45)
[2019-06-13] MEDS ORDERED: HEPARIN for IV BOLUS 10,000 UNIT/10 ML VIAL. IART ONE (11:45)
[2019-06-13] MEDS ORDERED: fentaNYL PF VIAL 100 MCG/2 ML VIAL IV ONE (11:45)
[2019-06-13] MEDS ORDERED: MIDAZOLAM HCL/PF 2 MG/2 ML VIAL. IV ONE (11:45)
[2019-06-13] MEDS ORDERED: NITROGLYCERIN 200 MCG/2 ML SYRINGE FOR CATH/VASC LAB. IART ONE (11:45)
--- NOTE | 2019-06-13 11:46 | PDOC1 ---
History and Physical Date of Admission Date of Admission DATE: 06/13/19 TIME: 11:44 Identification/Chief Complaint Chief Complaint Chest pain Source Source: Patient History of Present Illness History of Present Illness Mr Schumacher is a 79 year old male with history of coronary artery disease status post CABG in 2002, hypertension, dyslipidemia, afib s/p PPM who presents via EMS with complaining of chest pain. Patient complaining of nonexertional left lower chest pressure pain that started at 1999 last night that radiation. Patient complaining of nausea and dizziness. He notes pain 03/26. Patient was able to fall asleep with taking restoril and then woke up at around 2 AM to go to the bathroom as it has the same pain and was not able to fall asleep until 5:30 AM when he informed his who called EMS. Patient had 324 mg of aspirin and 1 nitroglycerin given by EMS and blood pressure dropped from 170s to 105 with resolving the pain completely. Patient states he gets episodes of chest pain tia ry day or other day that lasts for some time and was seen by his biosecurity officer a few months ago with unremarkable echo and EKG. Has q waves in anterolateral distribution on his new EKG. Negative CXR and troponin negative. He also c/o left knee pain that is moderate. Past Medical History Cardiovascular: AFIB, CAD, HTN, [place] Pulmonary: Bronchitis Heme/Onc: Other Past Surgical History Past Surgical History: CABG Family History Family History: Coronary Artery Disease Social History Smoke: No ALCOHOL: none Drugs: None Current Problem List Problem List Problems Medical Problems: (1) Acute chest pain Status: Acute Current Medications Current Medications Current Medications Lidocaine HCl (Xylocaine-Mpf 1% 2ml Vial) 2 ml STK-MED ONCE .ROUTE ; Start 06/13/19 at 11:03; Stop 06/13/19 at 11:03; Status DC Heparin Sodium/ Sodium Chloride 500 ml @ As Directed STK-MED ONCE .ROUTE ; Start 06/13/19 at 11:03; Stop 06/13/19 at 11:03; Status DC Methylprednisolone Sodium Succinate (SOLU-Medrol 125MG VIAL) 125 mg STK-MED ONCE .ROUTE ; Start 06/13/19 at 11:06; Stop 06/13/19 at 11:06; Status DC Fentanyl Citrate (Fentanyl 2ml Vial) 100 mcg STK-MED ONCE .ROUTE ; Start 06/13/19 at 11:06; Stop 06/13/19 at 11:06; Status DC Midazolam HCl (Versed) 2 mg STK-MED ONCE .ROUTE ; Start 06/13/19 at 11:06; Stop 06/13/19 at 11:06; Status DC Heparin Sodium (Porcine) (Heparin Sodium) 10,000 unit STK-MED ONCE .ROUTE ; Start 06/13/19 at 11:06; Stop 06/13/19 at 11:06; Status DC Verapamil HCl (Verapamil) 5 mg STK-MED ONCE .ROUTE ; Start 06/13/19 at 11:06; Stop 06/13/19 at 11:06; Status DC Famotidine (Pepcid Vial) 20 mg STK-MED ONCE .ROUTE ; Start 06/13/19 at 11:06; Stop 06/13/19 at 11:07; Status DC Diphenhydramine HCl (Benadryl) 50 mg STK-MED ONCE .ROUTE ; Start 06/13/19 at 11:06; Stop 06/13/19 at 11:07; Status DC Nitroglycerin (Nitroglycerin) 200 mcg STK-MED ONCE .ROUTE ; Start 06/13/19 at 11:06; Stop 06/13/19 at 11:07; Status DC Active Scripts Active Reported Eliquis (Apixaban) 2.5 Mg Tablet 2.5 Mg PO BID Flomax (Tamsulosin Hcl) 0.4 Mg Cap.er.24h 1 Cap PO DAILY Oxybutynin Chloride Er (Oxybutynin Chloride) 15 Mg Tab.er.24 1 Tab PO HS Symbicort 160-4.5 Mcg Inhaler (Budesonide/Formoterol Fumarate) 10.2 Gm Hfa.aer.ad 2 Puff IH BID Dulcolax (Bisacodyl) 5 Mg Tablet.dr 5 Mg PO HS PRN Proventil Hfa Inhaler (Albuterol Sulfate) 6.7 Gm Hfa.aer.ad 2 Puff IH PRN Q4HRS PRN Benicar (Olmesartan Medoxomil) 20 Mg Tablet 20 Mg PO BID Aspir 81 (Aspirin) 81 Mg Tablet.dr 1 Tab PO HS Temazepam 15 Mg Capsule 30 Mg PO QHS Sotalol (Sotalol Hcl) 80 Mg Tablet 60 Mg PO BID Zetia (Ezetimibe) 10 Mg Tablet 10 Mg PO DAILY Allergies Allergies: Coded Allergies: Iodine and Iodide Containing Produc (Verified Allergy, Severe, Swelling, 11/08/17) naproxen (Verified Allergy, Severe, throat swells and hives, 11/10/17) acetaminophen (Verified Allergy, Intermediate, hives, 11/10/17) hydrocodone (Verified Allergy, Intermediate, hives, 11/10/17) takes oxycodone at home lisinopril (Verified Allergy, Intermediate, cough, 11/10/17) ROS General: YES: Fatigue, Malaise; No: Chills, Night Sweats, Appetite, Other PSYCHOLOGICAL ROS: No: Anxiety, Behavioral Disorder, Concentration difficultie, Decreased libido, Depression, Disorientation, Hallucinations, Hostility, Irritab lity, Memory difficulties, Mood Swings, Obsessive thoughts, Physical abuse, Sexual abuse, Sleep disturbances, Suicidal ideation, Other Eyes: No Blurry vision, No Decreased vision, No Double vision, No Dry eyes, No Excessive tearing, No Eye Pain, No Itchy Eyes, No Loss of vision, No Photophobia, No Scotomata, No Uses contacts, No Uses glasses, No Other HEENT: No: Heacaches, Visual Changes, Hearing change, Nasal congestion, Nasal discharge, Oral lesions, Sinus pain, Sore Throat, Epistaxis, Sneezing, Snoring, Tinnitus, Vertigo, Vocal changes, Other ALLERGY AND IMMUNOLOGY: No: Hives, Insect Bite Sensitivity, Itchy/Watery Eyes, Nasal Congestion, Post Nasal Drip, Seasonal Allergies, Other Hematological and Lymphatic: No: Bleeding Problems, Blood Clots, Blood Transfusions, Brusing, Night Sweats, Pallor, Swollen Lymph Nodes, Other ENDOCRINE: No: Breast Changes, Galactorrhea, Hair Pattern Changes, Hot Flashes, Malaise/lethargy, Mood Swings, Palpitations, Polydipsia/polyuria, Skin Changes, Temperature Intolerance, Unexpected Weight Changes, Other Breast: No New/Changing Breast Lumps, No Nipple changes, No Nipple discharge, No Other Respiratory: YES: Shortness of breath; No: Cough, Hemoptysis, Orthopnea, Pleuritic Pain, SOB with excertion, Sputum Changes, Stridor, Tachypnea, Wheezing, Other Cardiovascular: yes Chest Pain, yes Orthopnea; No Palpitations, No Paroxysmal Noc. Dyspnea, No Edema, No Lt Headedness, No Other Gastrointestinal: No Nausea, No Vomiting, No Abdominal Pain, No Diarrhea, No Constipation, No Melena, No Hematochezia, No Other Genitourinary: No Dysuria, No Frequency, No Incontinence, No Hematuria, No Retention, No Discharge, No Urgency, No Pain, No Flank Pain, No Other, No , No , No , No , No , No , No Musculoskeletal: No Gait Disturbance, No Joint Pain, No Joint Stiffness, No Joint Swelling, No Muscle Pain, No Muscular Weakness, No Pain In:, No Swelling In:, No Other Neurological: No Behavorial Changes, No Bowel/Bladder ControlChng, No Confusion, No Dizziness, No Gait Disturbance, No Headaches, No Impaired Coord/balance, No Memory Loss, No Numbness/Tingling, No Seizures, No Speech Problems, No Tremors, No Visual Changes, No Weakness, No Other Skin: No Dry Skin, No Eczema, No Hair Changes, No Lumps, No Mole Changes, No Mottling, No Nail Changes, No Pruritus, No Rash, No Skin Lesion Changes, No Other, No Acne Physical Exam General: Alert, Oriented X3, Cooperative, No acute distress HEENT: Atraumatic, PERRLA, EOMI, Mucous membr. moist/pink Lungs: Clear to auscultation, Normal air movement Heart: S1S2, irregularly irregular Abdomen: Normal bowel sounds, Soft, No tenderness, No hepatosplenomegaly, No masses Rectal Exam: not examined Extremities: No clubbing, No cyanosis, No edema, Normal pulses, No tenderness/swelling Skin: No rashes, No breakdown, No significant lesion Neuro: Normal gait, Normal speech, Strength at 5/5 X4 ext, Normal tone, Sensation intact, Cranial nerves 3-12 NL, Reflexes 2+ Psych/Mental Status: Mental status NL, Mood NL Vitals Vitals Vital Signs Date Time Temp Pulse Resp B/P (MAP) Pulse Ox O2 Delivery O2 Flow Rate FiO2 06/13/19 11:00 97.9 63 18 150/85 (106) 95 Room Air 97.9 Labs Labs Laboratory Tests Test 06/13/19 06:30 White Blood Count 6.6 x10^3/uL (4.0-11.0) Red Blood Count 4.91 x10^6/uL (4.30-5.70) Hemoglobin 15.4 g/dL (13.0-17.5) Hematocrit 45.9 % (39.0-53.0) Mean Corpuscular Volume 94 fL (79-100) Mean Corpuscular Hemoglobin 31 pg (25-35) Mean Corpuscular Hemoglobin Concent 34 g/dL (31-37) Red Cell Distribution Width 13.6 % (11.5-14.5) Platelet Count 174 x10^3/uL (140-400) Neutrophils (%) (Auto) 64 % (31-73) Lymphocytes (%) (Auto) 22 % (24-48) Monocytes (%) (Auto) 9 % (0-9) Eosinophils (%) (Auto) 5 % (0-3) Basophils (%) (Auto) 1 % (0-3) Neutrophils # (Auto) 4.2 x10^3/uL (1.8-7.7) Lymphocytes # (Auto) 1.4 x10^3/uL (1.0-4.8) Monocytes # (Auto) 0.6 x10^3/uL (0.0-1.1) Eosinophils # (Auto) 0.3 x10^3/uL (0.0-0.7) Basophils # (Auto) 0.0 x10^3/uL (0.0-0.2) Prothrombin Time 14.3 SEC (11.7-14.0) Prothromb Time International Ratio 1.1 (0.8-1.1) Sodium Level 146 mmol/L (136-145) Potassium Level 3.8 mmol/L (3.5-5.1) Chloride Level 107 mmol/L (98-107) Carbon Dioxide Level 30 mmol/L (21-32) Anion Gap 9 (6-14) Blood Urea Nitrogen 15 mg/dL (8-26) Creatinine 1.1 mg/dL (0.7-1.3) Estimated GFR (Cockcroft-Gault) 64.7 BUN/Creatinine Ratio 14 (6-20) Glucose Level 109 mg/dL (70-99) Calcium Level 8.6 mg/dL (8.5-10.1) Magnesium Level 2.0 mg/dL (1.8-2.4) Total Bilirubin 1.0 mg/dL (0.2-1.0) Aspartate Amino Transf (AST/SGOT) 18 U/L (15-37) Alanine Aminotransferase (ALT/SGPT) 27 U/L (16-63) Alkaline Phosphatase 56 U/L (46-116) Creatine Kinase 57 U/L (39-308) Troponin I Quantitative < 0.017 ng/mL (0.000-0.055) HZ-Zaj-X-Type Natriuretic Peptide 145 pg/mL (0-449) Total Protein 6.5 g/dL (6.4-8.2) Albumin 3.8 g/dL (3.4-5.0) Albumin/Globulin Ratio 1.4 (1.0-1.7) Lipase 30 U/L (73-393) Laboratory Tests Test 06/13/19 06:30 White Blood Count 6.6 x10^3/uL (4.0-11.0) Red Blood Count 4.91 x10^6/uL (4.30-5.70) Hemoglobin 15.4 g/dL (13.0-17.5) Hematocrit 45.9 % (39.0-53.0) Mean Corpuscular Volume 94 fL (79-100) Mean Corpuscular Hemoglobin 31 pg (25-35) Mean Corpuscular Hemoglobin Concent 34 g/dL (31-37) Red Cell Distribution Width 13.6 % (11.5-14.5) Platelet Count 174 x10^3/uL (140-400) Neutrophils (%) (Auto) 64 % (31-73) Lymphocytes (%) (Auto) 22 % (24-48) Monocytes (%) (Auto) 9 % (0-9) Eosinophils (%) (Auto) 5 % (0-3) Basophils (%) (Auto) 1 % (0-3) Neutrophils # (Auto) 4.2 x10^3/uL (1.8-7.7) Lymphocytes # (Auto) 1.4 x10^3/uL (1.0-4.8) Monocytes # (Auto) 0.6 x10^3/uL (0.0-1.1) Eosinophils # (Auto) 0.3 x10^3/uL (0.0-0.7) Basophils # (Auto) 0.0 x10^3/uL (0.0-0.2) Prothrombin Time 14.3 SEC (11.7-14.0) Prothromb Time International Ratio 1.1 (0.8-1.1) Sodium Level 146 mmol/L (136-145) Potassium Level 3.8 mmol/L (3.5-5.1) Chloride Level 107 mmol/L (98-107) Carbon Dioxide Level 30 mmol/L (21-32) Anion Gap 9 (6-14) Blood Urea Nitrogen 15 mg/dL (8-26) Creatinine 1.1 mg/dL (0.7-1.3) Estimated GFR (Cockcroft-Gault) 64.7 BUN/Creatinine Ratio 14 (6-20) Glucose Level 109 mg/dL (70-99) Calcium Level 8.6 mg/dL (8.5-10.1) Magnesium Level 2.0 mg/dL (1.8-2.4) Total Bilirubin 1.0 mg/dL (0.2-1.0) Aspartate Amino Transf (AST/SGOT) 18 U/L (15-37) Alanine Aminotransferase (ALT/SGPT) 27 U/L (16-63) Alkaline Phosphatase 56 U/L (46-116) Creatine Kinase 57 U/L (39-308) Troponin I Quantitative < 0.017 ng/mL (0.000-0.055) DN-Bpm-X-Type Natriuretic Peptide 145 pg/mL (0-449) Total Protein 6.5 g/dL (6.4-8.2) Albumin 3.8 g/dL (3.4-5.0) Albumin/Globulin Ratio 1.4 (1.0-1.7) Lipase 30 U/L (73-393) Images Images CXR - Minimal left basilar linear atelectasis or scarring. No pneumothorax. No consolidation or pleural effusion. Normal heart size. Left-sided pacemaker, unchanged. Prior median sternotomy. Bilateral acromioclavicular DJD. VTE Prophylaxis Ordered VTE Prophylaxis Devices: No VTE Pharmacological Prophylaxi: Yes Assessment/Plan Assessment/Plan A/P: Chest pain - with high risk CAD historically. Cardiology consulted. trend troponins. ASA given with improvement. Coronary artery disease status post CABG in 2002 - per patient 4 vessel graft historically. Will cont ASA, on BB, statin, GEE Hypertension - cont meds Dyslipidemia - cont meds Afib - on sotalol 60mg BID as well as eliquis. Will continue. F/u cardiology recs OA - bilateral shoulder noted PPM in situ - battery life 2-3 years Left knee pain - historically with torn meniscus, will give topical voltaren. FEN - NPO PPX - eliquis FULL CODE Dispo - inpatient for high risk chest pain/ACS GUERDA CORNELIUS MD Jun 13, 2019 11:46
[2019-06-13] MEDS ORDERED: IODIXANOL 320 MG/ML 100 ML VIAL. ONE (11:50)
--- NOTE | 2019-06-13 12:37 | NUR ---
SS following for discharge planning. SS reviewed pt chart. Pt is from home with spouse and is currently on room air. PT/OT ordered. SS will continue to follow for discharge planning.
[2019-06-13] MEDS ORDERED: IV 1/2 NORMAL SALINE 1,000 ML IV SCH (12:49)
--- NOTE | 2019-06-13 12:49 | PDOC ---
MODERATE SEDATION ASSESSMENT RISKS/ALTERNATIVES Risks/Alternatives Risks and alternatives of this type of sedation and procedure discussed with: RISK/ALTERNATIVES: Patient H & P ON CHART H & P H & P on chart and reviewed for co-morbid conditions and appropriate labs. H&P ON CHART: Yes STATUS PREG STATUS ASSESSED: N/A MEDS/ALLERGIES REVIEWED Meds/Allergies Reviewed Medications and Allergies including time and route of recently administered narcotics and sedatives. MEDS/ALLERGIES REVIEWED: Yes ASA RATING ASA RATING: III AIRWAY ASSESSMENT Airway Assessment Airway patency, oral function limitations, presence of caps, crowns, dentures, partials, and ability to extend neck assessed. AIRWAY ASSESSMENT: Yes MALLAMPATI SCORE MALLAMPATI SCORE: II PRE-SEDATION ASSESSMENT PRE-SEDATION ASSESSMENT: Yes ROD CHRISTY MD Jun 13, 2019 12:49
[2019-06-13] MEDS ORDERED: NITROGLYCERIN SUBLINGUAL 0.4 MG BOTTLE OF 25. SL PRN (13:00)
--- NOTE | 2019-06-13 13:47 | CARD ---
MR#: [id number] Date of Study: 06/13/2019 Ordering Physician: ROD CHRISTY, Referring Physician: ROD CHRISTY Tech: LILIBETH GAN RTR APPROVED REPORT Technologist: LILIBETH GAN RTR Nurse: Purvi Rosa R.N. Procedure(s) performed: Left heart catheterization, selective coronary angiography and selective anna ography of the bypass grafts via right transradial approach MODERATE SEDATION TIME: 48 MINUTES FLUORO TIME: 9.7 MIN DOSE: 110 GYCM2 CONTRAST: 142 INDICATION The indication(s) include : unstable angina . CS Clinical Frailty Scale [facility] Clinical Frailty Scale: Mildly Frail Heart Failure Heart Failure: No PROCEDURE NARRATIVE After explaining the risks, benefits and alternative options, informed consent was obtained from marisol ent. Patient was brought to the cardiac [facility] [employer] and his right wrist was prepped and draped in the us ual fashion after confirming a positive modified Jeremy's test. Arterial access was obtained in the [facility] radial artery and a 6 [place] sheath was inserted. 6 [place] Phillip catheter was used to perform se lective angiography of the left coronary artery. 6 [place] JR4 catheter was used to perform selective angiography of the right coronary artery, selective angiography of the saphenous vein graft to the [facility] coronary artery, saphenous vein graft to the obtuse marginal branch and also the saphenous vein g raft to the left anterior descending artery. The left internal mammary artery was not grafted from pr ior cardiac catheterization and hence not engaged. 6 [place] pigtail catheter was perform left ventric ulography. Patient tolerated the procedure well. Hemostasis was achieved using TR band. There were no immediate complications. The following findings were noted. FINDINGS A. Hemodynamics: Left ventricle end-diastolic pressure 20 mmHg. No pullback gradient across the aor tic valve. B. Left ventriculography: Diaphragmatic wall hypokinesis with ejection fraction estimated at 55%. N o significant mitral regurgitation seen. C. Coronary and bypass graft angiography: 1. The left main coronary artery arose from the left sinus of Valsalva, gave rise to the left anteri or descending and left circumflex arteries and did not show any significant stenosis. 2. The left anterior descending artery showed a patent stent in the proximal segment. There was 100% chronic total occlusion noted in the midsegment with partial distal reconstitution of LAD from left to left collaterals. 3. The left circumflex artery showed 50% stenosis in the midsegment. The first obtuse marginal branc h which is a small to medium caliber vessel showed subtotal occlusion in the proximal segment with di stal reconstitution from collaterals. The second obtuse marginal branch that was grafted showed 50% s tenosis in the proximal segment. 4. The right coronary artery arose from the right sinus of Valsalva and showed calcified 60% stenosi s in the proximal segment. The posterior descending branch is 100% chronically occluded proximally. T here is distal reconstitution from right to right collaterals with the reconstituted PDA showing 95% stenosis in the midsegment. 5. The saphenous vein graft to the right coronary artery showed 100% chronic total occlusion proxima lly. 6. The saphenous vein graft to the obtuse marginal branch showed 100% chronic total occlusion proxim ally. 7. The saphenous vein graft to the left anterior descending artery showed 100% chronic total occlusi on proximal. Conclusion 1. Severe [place] vessel coronary artery disease s/p CABG as described above with chronically and tot ally occluded SVG to RCA, SVG to OM and SVG to LAD with distal reconstitution of LAD and PDA/RCA via collaterals. The left internal mammary artery was not used for grafting. 2. Diaphragmatic wall hypokinesis with ejection fraction estimated at 55%. Recommendations Medical Therapy Signed by : Rod Christy, Electronically Approved : 06/13/2019 13:46:42
[2019-06-13] MEDS ORDERED: BISACODYL 5 MG TABLET.DR. PO PRN (14:00)
[2019-06-13] MEDS ORDERED: ALBUTEROL SULFATE 2.5 MG/3 ML NEBU. INH PRN (14:00)
[2019-06-13] MEDS: LOSARTAN POTASSIUM 50 MG TABLET. PO SCH (15:03)
[2019-06-13] MEDS: ALBUTEROL SULFATE 2.5 MG/3 ML NEBU. NEB SCH ×2 (15:47→19:56)
[2019-06-13] MEDS: BUDESONIDE 0.5 MG/2 ML NEBU. NEB SCH (19:56)
[2019-06-13] MEDS ORDERED: TEMAZEPAM 15 MG CAPSULE PO SCH (21:00)
[2019-06-13] MEDS ORDERED: ASPIRIN ENTERIC COATED 81 MG TABLET.DR. PO SCH (21:00)
[2019-06-13] MEDS ORDERED: NON FORMULARY ITEM (Budesonide/Formoterol Fumarate (Symbicort 160-4.5 Mcg Inhaler) 2 PUFF) IH SCH (21:00)
[2019-06-13] MEDS: APIXABAN 2.5 MG TABLET. PO SCH (21:12)
[2019-06-13] MEDS: OXYBUTYNIN CHLORIDE 5 MG TABLET PO SCH (21:12)
[2019-06-13] MEDS: SOTALOL 80 MG TABLET. PO SCH (21:13)
[2019-06-13] MEDS: DICLOFENAC SODIUM 1% TOPICAL GEL 100GM TUBE. TP SCH (21:17)
[2019-06-14 03:00] VITALS: BP 162/85
[2019-06-14 07:00] VITALS: BP 186/86
[2019-06-14] MEDS: ALBUTEROL SULFATE 2.5 MG/3 ML NEBU. NEB SCH ×2 (07:38→11:33)
[2019-06-14] MEDS: BUDESONIDE 0.5 MG/2 ML NEBU. NEB SCH (07:38)
--- NOTE | 2019-06-14 08:09 | PDOC ---
PROGRESS NOTES Chief Complaint Chief Complaint A/P: Chest pain - with high risk CAD historically. Cardiology consulted. trend troponins. ASA given with improvement. Coronary artery disease status post CABG in 2002 - per patient 4 vessel graft historically. Will cont ASA, on BB, statin, GEE Hypertension - cont meds Dyslipidemia - cont meds Afib - on sotalol 60mg BID as well as eliquis. Will continue. F/u cardiology recs OA - bilateral shoulder noted PPM in situ - battery life 2-3 years Left knee pain - historically with torn meniscus, will give topical voltaren. FEN - Cardiac PPX - eliquis FULL CODE Dispo - inpatient for high risk chest pain/ACS History of Present Illness History of Present Illness Mr Schumacher is a 79 year old male with history of coronary artery disease status post CABG in 2002, hypertension, dyslipidemia, afib s/p PPM who presents via EMS with complaining of chest pain. Patient complaining of nonexertional left lower chest pressure pain that started at 1999 last night that radiation. Patient complaining of nausea and dizziness. He notes pain 03/26. Patient was able to fall asleep with taking restoril and then woke up at around 2 AM to go to the bathroom as it has the same pain and was not able to fall asleep until 5:30 AM when he informed his who called EMS. Patient had 324 mg of aspirin and 1 nitroglycerin given by EMS and blood pressure dropped from 170s to 105 with resolving the pain completely. Patient states he gets episodes of chest pain every day or other day that lasts for some time and was seen by his olericulturist a few months ago with unremarkable echo and EKG. Has q waves in anterolateral distribution on his new EKG. Negative CXR and troponin negative. He also c/o left knee pain that is moderate. 06/13/19: Cardiac cath - 1. Severe [place] vessel coronary artery disease s/p CABG as described above with chronically and totally occluded SVG to RCA, SVG to OM and SVG to LAD with distal reconstitution of LAD and PDA/RCA via collaterals. The left internal mammary artery was not used for grafting. 2. Diaphragmatic wall hypokinesis with ejection fraction estimated at 55%. Feeling ok today. Knee pain is improved. BP has been systolic in 180s. Plan to trial long acting nitro today. Vitals Vitals Vital Signs Date Time Temp Pulse Resp B/P (MAP) Pulse Ox O2 Delivery O2 Flow Rate FiO2 06/14/19 07:38 94 Room Air 06/14/19 03:00 98.6 60 18 162/85 (110) 98.6 06/13/19 19:35 2.0 Physical Exam General: Alert, Oriented X3, Cooperative, No acute distress Heart: Regular rate Abdomen: Normal bowel sounds, Soft, No tenderness, No hepatosplenomegaly, No masses Extremities: No clubbing, No cyanosis, No edema, Normal pulses, No tenderness/swelling Skin: No rashes, No breakdown, No significant lesion Labs LABS Laboratory Tests Test 06/13/19 18:30 Troponin I Quantitative 0.017 ng/mL (0.000-0.055) Assessment and Plan Assessmemt and Plan Problems Medical Problems: (1) Acute chest pain Status: Acute Comment Review of Relevant I have reviewed the following items amy (where applicable) has been applied. Labs Laboratory Tests Test 06/13/19 06:30 06/13/19 18:30 White Blood Count 6.6 x10^3/uL (4.0-11.0) Red Blood Count 4.91 x10^6/uL (4.30-5.70) Hemoglobin 15.4 g/dL (13.0-17.5) Hematocrit 45.9 % (39.0-53.0) Mean Corpuscular Volume 94 fL (79-100) Mean Corpuscular Hemoglobin 31 pg (25-35) Mean Corpuscular Hemoglobin Concent 34 g/dL (31-37) Red Cell Distribution Width 13.6 % (11.5-14.5) Platelet Count 174 x10^3/uL (140-400) Neutrophils (%) (Auto) 64 % (31-73) Lymphocytes (%) (Auto) 22 % (24-48) Monocytes (%) (Auto) 9 % (0-9) Eosinophils (%) (Auto) 5 % (0-3) Basophils (%) (Auto) 1 % (0-3) Neutrophils # (Auto) 4.2 x10^3/uL (1.8-7.7) Lymphocytes # (Auto) 1.4 x10^3/uL (1.0-4.8) Monocytes # (Auto) 0.6 x10^3/uL (0.0-1.1) Eosinophils # (Auto) 0.3 x10^3/uL (0.0-0.7) Basophils # (Auto) 0.0 x10^3/uL (0.0-0.2) Prothrombin Time 14.3 SEC (11.7-14.0) Prothromb Time International Ratio 1.1 (0.8-1.1) Sodium Level 146 mmol/L (136-145) Potassium Level 3.8 mmol/L (3.5-5.1) Chloride Level 107 mmol/L (98-107) Carbon Dioxide Level 30 mmol/L (21-32) Anion Gap 9 (6-14) Blood Urea Nitrogen 15 mg/dL (8-26) Creatinine 1.1 mg/dL (0.7-1.3) Estimated GFR (Cockcroft-Gault) 64.7 BUN/Creatinine Ratio 14 (6-20) Glucose Level 109 mg/dL (70-99) Calcium Level 8.6 mg/dL (8.5-10.1) Magnesium Level 2.0 mg/dL (1.8-2.4) Total Bilirubin 1.0 mg/dL (0.2-1.0) Aspartate Amino Transf (AST/SGOT) 18 U/L (15-37) Alanine Aminotransferase (ALT/SGPT) 27 U/L (16-63) Alkaline Phosphatase 56 U/L (46-116) Creatine Kinase 57 U/L (39-308) Troponin I Quantitative < 0.017 ng/mL (0.000-0.055) 0.017 ng/mL (0.000-0.055) MI-Gig-J-Type Natriuretic Peptide 145 pg/mL (0-449) Total Protein 6.5 g/dL (6.4-8.2) Albumin 3.8 g/dL (3.4-5.0) Albumin/Globulin Ratio 1.4 (1.0-1.7) Lipase 30 U/L (73-393) Laboratory Tests Test 06/13/19 18:30 Troponin I Quantitative 0.017 ng/mL (0.000-0.055) Medications Current Medications Lidocaine HCl (Xylocaine-Mpf 1% 2ml Vial) 2 ml STK-MED ONCE .ROUTE ; Start 06/13/19 at 11:03; Stop 06/13/19 at 11:03; Status DC Heparin Sodium/ Sodium Chloride 500 ml @ As Directed STK-MED ONCE .ROUTE ; Start 06/13/19 at 11:03; Stop 06/13/19 at 11:03; Status DC Methylprednisolone Sodium Succinate (SOLU-Medrol 125MG VIAL) 125 mg STK-MED ONCE .ROUTE ; Start 06/13/19 at 11:06; Stop 06/13/19 at 11:06; Status DC Fentanyl Citrate (Fentanyl 2ml Vial) 100 mcg STK-MED ONCE .ROUTE ; Start 06/13/19 at 11:06; Stop 06/13/19 at 11:06; Status DC Midazolam HCl (Versed) 2 mg STK-MED ONCE .ROUTE ; Start 06/13/19 at 11:06; Stop 06/13/19 at 11:06; Status DC Heparin Sodium (Porcine) (Heparin Sodium) 10,000 unit STK-MED ONCE .ROUTE ; Start 06/13/19 at 11:06; Stop 06/13/19 at 11:06; Status DC Verapamil HCl (Verapamil) 5 mg STK-MED ONCE .ROUTE ; Start 06/13/19 at 11:06; Stop 06/13/19 at 11:06; Status DC Famotidine (Pepcid Vial) 20 mg STK-MED ONCE .ROUTE ; Start 06/13/19 at 11:06; Stop 06/13/19 at 11:07; Status DC Diphenhydramine HCl (Benadryl) 50 mg STK-MED ONCE .ROUTE ; Start 06/13/19 at 11:06; Stop 06/13/19 at 11:07; Status DC Nitroglycerin (Nitroglycerin) 200 mcg STK-MED ONCE .ROUTE ; Start 06/13/19 at 11:06; Stop 06/13/19 at 11:07; Status DC Nitroglycerin (Nitroglycerin) 200 mcg 1X ONCE IART Last administered on 06/13/19at 12:25; Start 06/13/19 at 11:45; Stop 06/13/19 at 11:50; Status DC Verapamil HCl (Verapamil) 2.5 mg 1X ONCE IART Last administered on 06/13/19at 12:26; Start 06/13/19 at 11:45; Stop 06/13/19 at 11:50; Status DC Heparin Sodium (Porcine) (Heparin Sodium) 2,500 unit 1X ONCE IART Last administered on 06/13/19 12:26; Start 06/13/19 at 11:45; Stop 06/13/19 at 11:50; Status DC Heparin Sodium/ Sodium Chloride (HEPARIN for ARTERIAL LINE FLUSH) 1,000 unit 1X ONCE IART Last administered on 06/13/19at 12:23; Start 06/13/19 at 11:45; Stop 06/13/19 at 11:50; Status DC Midazolam HCl (Versed) 2 mg 1X ONCE IV Last administered on 06/13/19 12:24; Start 06/13/19 at 11:45; Stop 06/13/19 at 11:50; Status DC Fentanyl Citrate (Fentanyl 2ml Vial) 100 mcg 1X ONCE IV Last administered on 06/13/19 12:24; Start 06/13/19 at 11:45; Stop 06/13/19 at 11:50; Status DC Iodixanol (Visipaque 320) 100 ml 1X ONCE IART Last administered on 06/13/19at 12:23; Start 06/13/19 at 11:45; Stop 06/13/19 at 11:50; Status DC Lidocaine HCl (Xylocaine-Mpf 1% 2ml Vial) 2 ml 1X ONCE INJ Last administered on 06/13/19 12:24; Start 06/13/19 at 11:45; Stop 06/13/19 at 11:50; Status DC Diphenhydramine HCl (Benadryl) 25 mg 1X ONCE IVP Last administered on 06/13/19at 12:25; Start 06/13/19 at 11:25; Stop 06/13/19 at 11:50; Status DC Famotidine (Pepcid Vial) 20 mg 1X ONCE IVP Last administered on 06/13/19at 12:24; Start 06/13/19 at 11:25; Stop 06/13/19 at 11:50; Status DC Methylprednisolone Sodium Succinate (SOLU-Medrol 125MG VIAL) 125 mg 1X ONCE IV Last administered on 06/13/19at 12:25; Start 06/13/19 at 11:25; Stop 06/13/19 at 11:50; Status DC Iodixanol (Visipaque 320) 100 ml STK-MED ONCE .ROUTE ; Start 06/13/19 at 11:50; Stop 06/13/19 at 11:51; Status DC Sodium Chloride 1,000 ml @ 60 mls/hr [id number] IV Last administered on 06/13/19at 12:49; Start 06/13/19 at 12:49; Stop 06/14/19 at 02:21; Status DC Nitroglycerin (Nitrostat) 0.4 mg PRN Q5MIN PRN SL CHEST PAIN; Start 06/13/19 at 13:00 Albuterol Sulfate (Ventolin Neb Soln) 2.5 mg PRN Q4HRS PRN INH SHORTNESS OF BREATH; Start 06/13/19 at 14:00 Apixaban (Eliquis) 2.5 mg BID PO Last administered on 06/13/19at 21:12; Start 06/13/19 at 21:00 Aspirin (Ecotrin) 81 mg HS PO Last administered on 06/13/19at 21:12; Start 06/13/19 at 21:00 Bisacodyl (Dulcolax Tab) 5 mg PRN QHS PRN PO CONSTIPATION; Start 06/13/19 at 14:00 EZETIMIBE (Zetia) 10 mg DAILY PO ; Start 06/14/19 at 09:00 Sotalol HCl (Betapace) 60 mg BID PO Last administered on 06/13/19at 21:13; Start 06/13/19 at 21:00 Tamsulosin HCl (Flomax) 0.4 mg DAILY PO ; Start 06/14/19 at 09:00 Temazepam (Restoril) 30 mg QHS PO Last administered on 06/13/19at 21:14; Start 06/13/19 at 21:00 Non-Formulary Medication (Budesonide/ Formoterol Fumarate (Symbicort 160-4.5 Mcg Inhaler)) 2 puff BID IH ; Start 06/13/19 at 21:00; Stop 06/13/19 at 14:12; Status DC Losartan Potassium (Cozaar) 100 mg DAILY PO Last administered on 06/13/19at 15:03; Start 06/13/19 at 14:00 Oxybutynin Chloride (Ditropan) 5 mg BID PO Last administered on 06/13/19at 21:12; Start 06/13/19 at 21:00 Budesonide (Pulmicort) 0.5 mg RTBID NEB Last administered on 06/14/19at 07:38; Start 06/13/19 at 20:00 Albuterol Sulfate (Ventolin Neb Soln) 2.5 mg RTQID NEB Last administered on 1 at 07:38; Start 06/13/19 at 16:00 Diclofenac Sodium (Voltaren) 1 megan BID TP Last administered on 06/13/19at 21:17; Start 06/13/19 at 21:00 Active Scripts Active Reported Eliquis (Apixaban) 2.5 Mg Tablet 2.5 Mg PO BID Flomax (Tamsulosin Hcl) 0.4 Mg Cap.er.24h 1 Cap PO DAILY Oxybutynin Chloride Er (Oxybutynin Chloride) 15 Mg Tab.er.24 1 Tab PO HS Symbicort 160-4.5 Mcg Inhaler (Budesonide/Formoterol Fumarate) 10.2 Gm Hfa.aer.ad 2 Puff IH BID Dulcolax (Bisacodyl) 5 Mg Tablet.dr 5 Mg PO HS PRN Proventil Hfa Inhaler (Albuterol Sulfate) 6.7 Gm Hfa.aer.ad 2 Puff IH PRN Q4HRS PRN Benicar (Olmesartan Medoxomil) 20 Mg Tablet 20 Mg PO BID Aspir 81 (Aspirin) 81 Mg Tablet. 1 Tab PO HS Temazepam 15 Mg Capsule 30 Mg PO QHS Sotalol (Sotalol Hcl) 80 Mg Tablet 60 Mg PO BID Zetia (Ezetimibe) 10 Mg Tablet 10 Mg PO DAILY Vitals/I & O Vital Sign - Last 24 Hours 06/13/19 06/13/19 06/13/19 06/13/19 11:00 12:24 12:25 12:26 Temp 97.9 97.9 Pulse 63 66 66 Resp 18 18 19 B/P (MAP) 150/85 (106) 185/98 Pulse Ox 95 99 99 O2 Delivery Room Air Nasal Cannula Nasal Cannula O2 Flow Rate 2.0 2.0 06/13/19 06/13/19 06/13/19 06/13/19 12:35 12:50 12:51 13:05 Pulse 68 60 62 58 B/P (MAP) 153/94 (113) 177/124 (141) 143/86 (105) 161/93 (115) 06/13/19 06/13/19 06/13/19 06/13/19 13:20 13:50 14:20 15:00 Temp 98.0 98.0 Pulse 62 62 62 59 Resp 18 B/P (MAP) 149/79 (102) 160/89 (112) 160/84 (109) 147/78 (101) Pulse Ox 95 O2 Delivery Room Air 06/13/19 06/13/19 06/13/19 06/13/19 15:03 15:49 16:20 16:22 Pulse 63 58 60 B/P (MAP) 173/97 173/97 (122) 157/83 (107) Pulse Ox 95 06/13/19 06/13/19 06/13/19 06/13/19 19:00 19:35 19:58 21:13 Temp 98.4 98.4 Pulse 85 92 Resp 18 B/P (MAP) 167/96 (119) 167/96 Pulse Ox 93 95 O2 Delivery Room Air Nasal Cannula O2 Flow Rate 2.0 06/13/19 06/14/19 06/14/19 23:23 03:00 07:38 Temp 98.3 98.6 98.3 98.6 Pulse 89 60 Resp 18 18 B/P (MAP) 148/86 (106) 162/85 (110) Pulse Ox 93 96 94 O2 Delivery Room Air Room Air Room Air Intake and Output 06/13/19 06/13/19 06/14/19 15:00 23:00 07:00 Intake Total 680 ml 500 ml Output Total 250 ml 800 ml 425 ml Balance -250 ml -120 ml 75 ml GUERDA CORNELIUS MD Jun 14, 2019 08:09
[2019-06-14] MEDS: APIXABAN 2.5 MG TABLET. PO SCH (08:32)
[2019-06-14] MEDS: SOTALOL 80 MG TABLET. PO SCH (08:33)
[2019-06-14] MEDS: LOSARTAN POTASSIUM 50 MG TABLET. PO SCH (08:33)
[2019-06-14] MEDS: OXYBUTYNIN CHLORIDE 5 MG TABLET PO SCH (08:34)
[2019-06-14] MEDS: DICLOFENAC SODIUM 1% TOPICAL GEL 100GM TUBE. TP SCH (08:34)
[2019-06-14] MEDS ORDERED: EZETIMIBE 10 MG TABLET. PO SCH (09:00)
[2019-06-14] MEDS ORDERED: TAMSULOSIN 0.4 MG CAP.ER.24H. PO SCH (09:00)
[2019-06-14] MEDS ORDERED: ISOSORBIDE MONONITRATE ER 30 MG TAB.ER.24H PO SCH (09:30)
[2019-06-14 11:00] VITALS: BP 112/65
--- NOTE | 2019-06-14 11:06 | PDOC ---
[facility] 06/14/19 1106: CARDIO Progress Notes Date and Time Date of Service 06/14/19 Time of Evaluation 1030 Subjective Subjective: No Chest Pain, No shortness of breath, No Palpitations Vitals Vitals Vital Signs Date Time Temp Pulse Resp B/P (MAP) Pulse Ox O2 Delivery O2 Flow Rate FiO2 06/14/19 10:00 77 186/86 06/14/19 07:38 94 Room Air 06/14/19 07:00 97.3 20 97.3 06/13/19 19:35 2.0 Weight Weight [ ] Input and Output Intake and Output Intake and Output 06/14/19 07:00 Intake Total 1180 ml Output Total 1475 ml Balance -295 ml Intake Oral 1180 ml Output Urine Total 1475 ml # Bowel Movements 1 Laboratory Labs Laboratory Tests Test 06/13/19 18:30 Troponin I Quantitative 0.017 ng/mL (0.000-0.055) Physical Exam HEENT: Neck Supple W Full Motion Chest: Symmetric LUNGS: Clear to Auscultation Heart: S1S2, RRR, irregularly irregular Abdomen: Soft N/T Extremities: No Edema, Other (right radial arteriotomy site soft, clean, and dry. Bilateral neurovascular status intact..) Neurology: alert, oriented, follow commands Assessment Assessment 1. Chest pain 2. CAD s/t previous CABG; Cath showed chronically occluded SVG to RCA, SVG to OM, and SVG to LAD with distal reconstitution of LAD and PDA/RCA via collaterals. Imdur initiated- face flush this am 2. PAFIB; Presently in sinus rhythm. Recent 2-D echo showed normal LV function. 3. Hypertension; labile 4. Hyperlipidemia; on zetia. not previously been on statin 5. SSS s/p PPM; device check with normal function. One episode of AF since 01/2019 Recommendations Add lipitor, Plavix Stop imdur due to flushing. Will start Ranexa Continue eliquis for stroke prophylaxis. Continue sotalol for rhythm maintenance. May discharge from a CV standpoint and f/u in our office with Dr. Campoverde in 1 month as scheduled. ROD CAMPOVERDE MD 06/14/19 0784: CARDIO Progress Notes Assessment Assessment Patient seen and examined. Agree with GREEN BUILD[employer] DES[employer] SPECIALIST's assessment and plan. Cardiac catheterization yesterday showed occluded vein grafts without any lesions needing percutaneous intervention Plan to optimize medical therapy. Start Ranexa to maximize antianginal therapy. If he becomes symptomatic, we will consider stress test to assess ischemia burden and consider multivessel PCI to chronic total occlusions. Okay for discharge from cardiac standpoint. TONY LEON APRN Jun 14, 2019 11:06 ROD CAMPOVERDE MD Jun 14, 2019 17:14
[2019-06-14] MEDS ORDERED: ATOR40TA PO (12:15)
[2019-06-14] MEDS ORDERED: RANO500T2 PO (12:15)
[2019-06-14] MEDS ORDERED: RANOLAZINE 500 MG TAB.ER.12H PO SCH (12:30)
[2019-06-14] MEDS ORDERED: DICL100G18 TP (12:57)
--- NOTE | 2019-06-14 13:00 | PDOC3 ---
Discharge Summary Visit Information Date of Admission: Jun 13, 2019 Date of Discharge: Jun 14, 2019 Admitting Diagnosis: Acute chest pain, unstable angina Final Diagnosis Problems Medical Problems: (1) Acute chest pain Status: Acute Brief Hospital Course Allergies Allergies Coded Allergies Type Severity Reaction Last Updated Verified Iodine and Iodide Containing Produc Allergy Severe Swelling 11/08/17 Yes naproxen Allergy Severe throat swells and hives 11/10/17 Yes hydrocodone Allergy Intermediate hives 11/10/17 Yes lisinopril Allergy Intermediate cough 11/10/17 Yes Vital Signs Vital Signs Date Time Temp Pulse Resp B/P (MAP) Pulse Ox O2 Delivery O2 Flow Rate FiO2 06/14/19 11:33 95 Room Air 06/14/19 11:00 98.3 67 18 112/65 (81) 98.3 06/13/19 19:35 2.0 Lab Results Laboratory Tests Test 06/13/19 06:30 06/13/19 18:30 White Blood Count 6.6 x10^3/uL (4.0-11.0) Red Blood Count 4.91 x10^6/uL (4.30-5.70) Hemoglobin 15.4 g/dL (13.0-17.5) Hematocrit 45.9 % (39.0-53.0) Mean Corpuscular Volume 94 fL (79-100) Mean Corpuscular Hemoglobin 31 pg (25-35) Mean Corpuscular Hemoglobin Concent 34 g/dL (31-37) Red Cell Distribution Width 13.6 % (11.5-14.5) Platelet Count 174 x10^3/uL (140-400) Neutrophils (%) (Auto) 64 % (31-73) Lymphocytes (%) (Auto) 22 % (24-48) Monocytes (%) (Auto) 9 % (0-9) Eosinophils (%) (Auto) 5 % (0-3) Basophils (%) (Auto) 1 % (0-3) Neutrophils # (Auto) 4.2 x10^3/uL (1.8-7.7) Lymphocytes # (Auto) 1.4 x10^3/uL (1.0-4.8) Monocytes # (Auto) 0.6 x10^3/uL (0.0-1.1) Eosinophils # (Auto) 0.3 x10^3/uL (0.0-0.7) Basophils # (Auto) 0.0 x10^3/uL (0.0-0.2) Prothrombin Time 14.3 SEC (11.7-14.0) Prothromb Time International Ratio 1.1 (0.8-1.1) Sodium Level 146 mmol/L (136-145) Potassium Level 3.8 mmol/L (3.5-5.1) Chloride Level 107 mmol/L (98-107) Carbon Dioxide Level 30 mmol/L (21-32) Anion Gap 9 (6-14) Blood Urea Nitrogen 15 mg/dL (8-26) Creatinine 1.1 mg/dL (0.7-1.3) Estimated GFR (Cockcroft-Gault) 64.7 BUN/Creatinine Ratio 14 (6-20) Glucose Level 109 mg/dL (70-99) Calcium Level 8.6 mg/dL (8.5-10.1) Magnesium Level 2.0 mg/dL (1.8-2.4) Total Bilirubin 1.0 mg/dL (0.2-1.0) Aspartate Amino Transf (AST/SGOT) 18 U/L (15-37) Alanine Aminotransferase (ALT/SGPT) 27 U/L (16-63) Alkaline Phosphatase 56 U/L (46-116) Creatine Kinase 57 U/L (39-308) Troponin I Quantitative < 0.017 ng/mL (0.000-0.055) 0.017 ng/mL (0.000-0.055) PK-Nzy-V-Type Natriuretic Peptide 145 pg/mL (0-449) Total Protein 6.5 g/dL (6.4-8.2) Albumin 3.8 g/dL (3.4-5.0) Albumin/Globulin Ratio 1.4 (1.0-1.7) Triglycerides Level 161 mg/dL (0-150) Cholesterol Level 195 mg/dL (0-200) LDL Cholesterol, Calculated 124 mg/dL (0-100) VLDL Cholesterol, Calculated 32 mg/dL (0-40) Non-HDL Cholesterol Calculated 156 mg/dL (0-129) HDL Cholesterol 39 mg/dL (40-60) Cholesterol/HDL Ratio 5.0 Lipase 30 U/L (73-393) Laboratory Tests Test 06/13/19 18:30 Troponin I Quantitative 0.017 ng/mL (0.000-0.055) Brief Hospital Course Mr Schumacher is a 79 year old male with history of coronary artery disease status post CABG in 2002, hypertension, dyslipidemia, afib s/p PPM who presents via EMS with complaining of chest pain. Patient complaining of nonexertional left lower chest pressure pain that started at 2000 last night that radiation. Patient complaining of nausea and dizziness. He notes pain 8/10. Patient was able to fall asleep with taking restoril and then woke up at around 2 AM to go to the bathroom as it has the same pain and was not able to fall asleep until 5:30 AM when he informed his who called EMS. Patient had 324 mg of aspirin and 1 nitroglycerin given by EMS and blood pressure dropped from 170s to 105 with resolving the pain completely. Patient states he gets episodes of chest pain every day or other day that lasts for some time and was seen by his millinery blocker a few months ago with unremarkable echo and EKG. Has q waves in anterolateral distribution on his new EKG. Negative CXR and troponin negative. He also c/o left knee pain that is moderate. 06/13/19: Cardiac cath - 1. Severe absentee-shawnee vessel coronary artery disease s/p CABG as described above with chronically and totally occluded SVG to RCA, SVG to OM and SVG to LAD with distal reconstitution of LAD and PDA/RCA via collaterals. The left internal mammary artery was not used for grafting. 2. Diaphragmatic wall hypokinesis with ejection fraction estimated at 55%. Feeling ok today. Knee pain is improved. BP has been systolic in 180s. Plan to trial long acting nitro today was foiled by flush and headache, changed to rano lazine with good effect and started on atorvastatin. A/P: Chest pain - with high risk CAD historically. Cardiology consulted. trend troponins. ASA given with improvement. Coronary artery disease status post CABG in 2002 - per patient 4 vessel graft historically. Will cont ASA, on BB, statin, GEE Hypertension - cont meds Dyslipidemia - cont meds Afib - on sotalol 60mg BID as well as eliquis. Will continue. F/u cardiology recs OA - bilateral shoulder noted PPM in situ - battery life 2-3 years Left knee pain - historically with torn meniscus, will give topical voltaren. Discharge Information Condition at Discharge: Improved Follow Up: Weeks Disposition/Orders: D/C to Home Scheduled Apixaban (Eliquis) 2.5 Mg Tablet, 2.5 MG PO BID for afib, (Reported) Entered as Reported by: KENDALL ENGLISH on 06/13/191119 Last Action: Continued on 06/13/191400 by GUERDA CORNELIUS MD Aspirin (Aspir 81) 81 Mg Tablet.dr, 1 TAB PO HS for CAD, #30 Ref 5 (Reported) Entered as Reported by: MANJIT CHAVARRIA on 10/03/14 1719 Last Action: Continued on 06/13/191400 by GUERDA CORNELIUS MD Atorvastatin Calcium (Lipitor) 40 Mg Tablet, 1 TAB PO QHS for coronary artery disease, #90 Ref 2 Prescribed by: TONY LEON APRN on 06/14/19 1215 Budesonide/Formoterol Fumarate (Symbicort 160-4.5 Mcg Inhaler) 10.2 Gm Hfa.aer.ad, 2 PUFF IH BID for COPD, #10.6 Ref 3 (Reported) Entered as Reported by: KENDALL ENGLISH on 06/13/191119 Last Action: Converted on 06/13/191400 by GUERDA CORNELIUS MD Diclofenac Sodium (Voltaren) 100 Gm Gel..gram., 1 MYRON TP BID for Osteoarthritis left knee for 30 Days, #60 Ref 5 Prescribed by: GUERDA CORNELIUS MD on 06/14/19 1257 Olmesartan Medoxomil (Benicar) 20 Mg Tablet, 20 MG PO BID for blood pressure, (Reported) Entered as Reported by: RADHA RANDALL on 11/28/16 1333 Last Action: Converted on 06/13/191400 by GUERDA CORNELIUS MD Oxybutynin Chloride (Oxybutynin Chloride Er) 15 Mg Tab.er.24, 1 TAB PO HS for BLADDER SPASMS, #90 Ref 1 (Reported) Entered as Reported by: KENDALL ENGLISH on 06/13/191119 Last Action: Converted on 06/13/191400 by GUERDA CORNELIUS MD Ranolazine (Ranexa) 500 Mg Tab.er.12h, 1 TAB PO BID for coronary artery disease for 30 Days, #60 Ref 2 Prescribed by: TONY LEON APRN on 06/14/19 1215 Sotalol Hcl (Sotalol) 80 Mg Tablet, 60 MG PO BID for afib, (Reported) Entered as Reported by: MANJIT CHAVARRIA on 10/03/141718 Last Action: Continued on 06/13/191400 by GUERDA CORNELIUS MD Tamsulosin Hcl (Flomax) 0.4 Mg Cap.er.24h, 1 CAP PO DAILY for retention, #30 Ref 11 (Reported) Entered as Reported by: KENDALL ENGLISH on 06/13/19 1120 Last Action: Continued on 06/13/191400 by GUERDA CORNELIUS MD Temazepam (Temazepam) 15 Mg Capsule, 30 MG PO QHS for INSOMNIA, #30 Ref 1 (Reported) Entered as Reported by: MANJIT CHAVARRIA on 10/03/141718 Last Action: Continued on 06/13/191400 by GUERDA CORNELIUS MD Scheduled PRN Albuterol Sulfate (Proventil Hfa Inhaler) 6.7 Gm Hfa.aer.ad, 2 PUFF IH PRN Q4HRS PRN for SHORTNESS OF BREATH, Ref 0 (Reported) Entered as Reported by: RADHA RANDALL on 11/28/161335 Last Action: Continued on 06/13/191400 by GUERDA CORNELIUS MD Bisacodyl (Dulcolax) 5 Mg Tablet.dr, 5 MG PO HS PRN for CONSTIPATION, Ref 0 (Reported) Entered as Reported by: RADHA RANDALL on 11/28/161335 Last Action: Continued on 06/13/191400 by GUERDA CORNELIUS MD Discontinued Medications Ezetimibe (Zetia) 10 Mg Tablet, 10 MG PO DAILY, (Reported) Entered as Reported by: MANJIT CHAVARRIA on 10/03/141718 Last Action: Continued on 06/13/191400 by MD ADRYAN CARO CHRISTOPHER S MD Jun 14, 2019 13:00
[2019-06-14] MEDS ORDERED: CLOP75TA PO (13:01)
--- NOTE | 2019-06-14 13:45 | NUR ---
Discharge Note: HÉCTOR GARCIA Discharge instructions and discharge home medications reviewed with Patient and Spouse and a copy given. All questions have been answered and understanding verbalized. The following instructions and handouts were given: CP, angiography care after, cardiac rehab, Lipitor, Plavix, Voltaren cream, Ranexa Discontinued lines and drains: Peripheral IV intact. Patient discharged to Home or Self Care with Family Member via Wheelchair
[2019-06-14] MEDS ORDERED: ATORVASTATIN CALCIUM 40 MG TABLET. PO SCH (21:00)
== END 2019-06-14 13:40 | disposition home or self-care (01) | DRG 287 ==
LOC: ER 06:19 → 2 NORTH 07:12
PROVIDERS: ADMIT Family Medicine; ATTEND Family Medicine
PROC: 4A023N7 Measurement of Cardiac Sampling and Pressure, Left Heart, Percutaneous Approach (ICD-10-PCS; principal; 2019-06-13)
PROC: B2111ZZ Fluoroscopy of Multiple Coronary Arteries using Low Osmolar Contrast (ICD-10-PCS; 2019-06-13)
PROC: B2151ZZ Fluoroscopy of Left Heart using Low Osmolar Contrast (ICD-10-PCS; 2019-06-13)
PROC: B2131ZZ Fluoroscopy of Multiple Coronary Artery Bypass Grafts using Low Osmolar Contrast (ICD-10-PCS; 2019-06-13)
PROC: 4B02XSZ Measurement of Cardiac Pacemaker, External Approach (ICD-10-PCS; 2019-06-13)
DX: I25.710 Atherosclerosis of autologous vein coronary artery bypass graft(s) with unstable angina pectoris (principal); I25.110 Atherosclerotic heart disease of native coronary artery with unstable angina pectoris; I50.32 Chronic diastolic (congestive) heart failure; E78.5 Hyperlipidemia, unspecified; E78.00 Pure hypercholesterolemia, unspecified; F41.9 Anxiety disorder, unspecified; M19.012 Primary osteoarthritis, left shoulder; M19.011 Primary osteoarthritis, right shoulder; I48.0 Paroxysmal atrial fibrillation; I49.5 Sick sinus syndrome; I25.82 Chronic total occlusion of coronary artery; G47.00 Insomnia, unspecified; Z95.820 Peripheral vascular angioplasty status with implants and grafts; Z95.1 Presence of aortocoronary bypass graft; Z95.0 Presence of cardiac pacemaker; Z88.8 Allergy status to other drugs, medicaments and biological substances; Z88.6 Allergy status to analgesic agent; Z91.041 Radiographic dye allergy status; I25.2 Old myocardial infarction; Z82.49 Family history of ischemic heart disease and other diseases of the circulatory system; I11.0 Hypertensive heart disease with heart failure
CPT/HCPCS: 36415; 71045; 80053; 80061; 82550; 83690; 83735; 83880; 84484; 85025; 85610; 93005; 93459; 94640; 94760; 99152; 99153; C1769; C1892; J1200; J1644; J2250; J2930; J3010; J3490; J7613; J7626; Q9967; 99285-25; G0378

== ENCOUNTER 2019-06-19 14:23 | Inpatient (IN) | payer MEDICARE, OTHER ==
[~2019-06-19] VITALS: Ht 175.3 cm; Wt 100.2 kg
[~2019-06-19 14:23] MED LIST changes: -ALBU2.5V8 IH; +APIX2.5T PO; +ATOR40TA PO; +BUDE10.2 IH; +CLOP75TA PO; +DICL100G18 TP; +OXYB15TA17 PO; +PROVENTIL HFA6.7 GM IH; +RANO500T2 PO; +TAMS0.4C97 PO
[2019-06-19] MEDS ORDERED: IV NORMAL SALINE 1000ML BAG 1,000 ML IV ONE (15:00)
--- NOTE | 2019-06-19 15:00 | PHYS DOC ---
Past Medical History Past Medical History: A-Fib, Anxiety, Asthma, CAD, Cancer, COPD, High Cholesterol, Hypertension, Other Additional Past Medical Histor: insomnia Past Surgical History: Angioplasty, Coronary Bypass Surgery, Pacemaker, Other Additional Past Surgical Histo: melonoma removed several times, fiber cyst removed from tongue, eye lift Alcohol Use: None Drug Use: None Adult General Chief Complaint Chief Complaint: RECTAL BLEED HPI HPI Patient is a 79-year-old male, with numerous health problems including coronary artery disease, and history of atrial fibrillation, currently on Eliquis and Plavix, who presents to the emergency department for evaluation. The patient was recently hospitalized for chest pain, and underwent a cardiac catheterization, relevant notes from his recent hospital stay have been reviewed. The patient states that since Thursday night, he has been having some bright red blood per rectum, along with some darker stool. He has not had any nausea or vomiting. He does report some generalized weakness and malaise. He's had a history of rectal bleeding in the past, due to hemorrhoids, but has not had a colonoscopy in the past several years. He denies any significant pain, including any significant abdominal pain. He does have a history of constipation and frequently has to use suppositories, including over the past few days. There are no alleviating or exacerbating factors to his symptoms. Review of Systems Review of Systems Constitutional: Denies fever or chills [] Eyes: Denies change in visual acuity, redness, or eye pain [] HENT: Denies nasal congestion or sore throat [] Respiratory: Denies cough or shortness of breath [] Cardiovascular:The patient denies any shortness of breath, chest pain, palpitations, or orthopnea[] GI: Denies abdominal pain, nausea, vomiting, or diarrhea [] : Denies dysuria or hematuria [] Musculoskeletal: Denies back pain or joint pain [] Integument: Denies rash or skin lesions [] Neurologic: Denies headache, focal weakness or sensory changes [] Endocrine: Denies polyuria or polydipsia [] All other systems were reviewed and found to be within normal limits, except as documented in this note. Current Medications Current Medications Current Medications Medications (Trade) Dose Ordered Sig/Leida Start Time Stop Time Status Last Admin Dose Admin Sodium Chloride 1,000 ml @ 1,000 mls/hr 1X ONCE 06/19/19 15:00 06/19/19 15:59 06/19/19 15:15 1,000 MLS/HR Allergies Allergies Allergies Coded Allergies Type Severity Reaction Last Updated Verified Iodine and Iodide Containing Produc Allergy Severe Swelling 11/08/17 Yes naproxen Allergy Severe throat swells and hives 11/10/17 Yes hydrocodone Allergy Intermediate hives 11/10/17 Yes lisinopril Allergy Intermediate cough 11/10/17 Yes Physical Exam Physical Exam PHYSICAL EXAM: CONSTITUTIONAL: Well developed, well nourished HEAD: normocephalic, atraumatic EENT: PERRL, EOMI. Conjunctivae normal color, sclerae non-icteric; moist mucous membranes. NECK: Supple, non-tender; no meningismus. LUNGS: Lungs CTA, breathing even and unlabored. Normal air movement. HEART: Regular rate and rhythm, no murmur CHEST: No deformity; non-tender ABDOMEN: The abdomen is soft, and non-tender, no masses or bruits. EXTREM: Normal ROM; no deformity, no calf tenderness. Normal pulses palpable in all extremities. There is no pedal edema. SKIN: No rash; no diaphoresis NEURO: Alert; normal speech and cognition; CN's grossly intact; strength grossly intact without focal deficit. BACK: No CVA TTP. RECTAL EXAM: There are small, nonthrombosed, nonbleeding external hemorrhoids. There is bright red blood on digital rectal exam. Prostate is mildly enlarged. Current Patient Data Vital Signs Vital Signs Date Time Temp Pulse Resp B/P (MAP) Pulse Ox O2 Delivery O2 Flow Rate FiO2 06/19/19 14:30 98.2 82 16 138/84 (102) 98 Room Air 98.2 Lab Values Laboratory Tests Test 06/19/19 14:45 06/19/19 15:10 Stool Occult Blood Positive (NEG) White Blood Count 8.3 x10^3/uL (4.0-11.0) Red Blood Count 5.07 x10^6/uL (4.30-5.70) Hemoglobin 16.0 g/dL (13.0-17.5) Hematocrit 47.0 % (39.0-53.0) Mean Corpuscular Volume 93 fL (79-100) Mean Corpuscular Hemoglobin 32 pg (25-35) Mean Corpuscular Hemoglobin Concent 34 g/dL (31-37) Red Cell Distribution Width 14.2 % (11.5-14.5) Platelet Count 191 x10^3/uL (140-400) Neutrophils (%) (Auto) 79 % (31-73) H Lymphocytes (%) (Auto) 12 % (24-48) L Monocytes (%) (Auto) 7 % (0-9) Eosinophils (%) (Auto) 2 % (0-3) Basophils (%) (Auto) 1 % (0-3) Neutrophils # (Auto) 6.5 x10^3/uL (1.8-7.7) Lymphocytes # (Auto) 1.0 x10^3/uL (1.0-4.8) Monocytes # (Auto) 0.6 x10^3/uL (0.0-1.1) Eosinophils # (Auto) 0.2 x10^3/uL (0.0-0.7) Basophils # (Auto) 0.0 x10^3/uL (0.0-0.2) Prothrombin Time 15.2 SEC (11.7-14.0) H Prothrombin Time INR 1.2 (0.8-1.1) H Activated Partial Thromboplast Time 32 SEC (24-38) Sodium Level 139 mmol/L (136-145) Potassium Level 4.4 mmol/L (3.5-5.1) Chloride Level 103 mmol/L (98-107) Carbon Dioxide Level 27 mmol/L (21-32) Anion Gap 9 (6-14) Blood Urea Nitrogen 25 mg/dL (8-26) Creatinine 1.4 mg/dL (0.7-1.3) H Estimated GFR (Cockcroft-Gault) 49.0 Glucose Level 111 mg/dL (70-99) H Calcium Level 9.0 mg/dL (8.5-10.1) Laboratory Tests 06/19/19 15:10 Laboratory Tests 06/19/19 15:10 EKG EKG Normal sinus rhythm versus underlying atrial flutter, at a rate of 72 beats for minute, normal axis, normal intervals, there are no acute ischemic ST/T changes. Inferior Q waves are present, poor anterior R-wave progression is present.[] Radiology/Procedures Radiology/Procedures [] Course & Med Decision Making Course & Med Decision Making Pertinent Lab studies reviewed. (See chart for details) []3:50 PM: The patient's condition care was discussed with the hospitalist on- call who will admit the patient. The patient was noted to be orthostatic. Dragon Disclaimer Dragon Disclaimer This electronic medical record was generated, in whole or in part, using a voice recognition dictation system. Departure Departure Impression: Primary Impression: Lower GI bleeding Additional Impression: Anticoagulated Disposition: 09 ADMITTED INPATIENT Admitting Physician: CORNELL Condition: STABLE Referrals: ROLAND MAHER MD (PCP) Problem Qualifiers LYSSA GARNICA MD Jun 19, 2019 15:00
[2019-06-19 15:02] LABS: FECAL OB PT POSITIVE (NEG)
[2019-06-19 15:19] LABS: BASO % 1 % (0-3); EOS # 0.2 x10^3/uL (0.0-0.7); EOS % 2 % (0-3); LYMPH % 12 % (24-48); MEAN CORPUSCULAR HEMOGLOBIN 32 pg (25-35); MEAN CORPUSCULAR HGB CONC 34 g/dL (31-37); MEAN CORPUSCULAR VOLUME 93 fL (79-100); MONO # 0.6 x10^3/uL (0.0-1.1); MONO % 7 % (0-9); NEUT # 6.5 x10^3/uL (1.8-7.7); NEUT % 79 % (31-73); PLATELET COUNT 191 x10^3/uL (140-400); RED BLOOD COUNT 5.07 x10^6/uL (4.30-5.70); RED CELL DISTRIBUTION WIDTH 14.2 % (11.5-14.5); WHITE BLOOD COUNT 8.3 x10^3/uL (4.0-11.0)
[2019-06-19 15:26] LABS: CREATININE 1.4 mg/dL (0.7-1.3); POTASSIUM 4.4 mmol/L (3.5-5.1)
[2019-06-19 15:28] LABS: PROTHROMBIN TIME PATIENT 15.2 SEC (11.7-14.0)
--- NOTE | 2019-06-19 16:13 | PDOC1 ---
History and Physical Date of Admission Date of Admission DATE: 06/19/19 TIME: 16:02 Identification/Chief Complaint Chief Complaint Blood in stool Source Source: Patient History of Present Illness History of Present Illness Mr Schumacher is a 79 year old male with history of coronary artery disease status post CABG in 2002, hypertension, dyslipidemia, afib s/p PPM who presents c/o blood in stool. Since 06/17/19 he has been having some bright red blood per rectum, along with some darker stool. He has not had any nausea or vomiting. He does report some generalized weakness and malaise. He's had a history of rectal bleeding in the past, due to hemorrhoids, but has not had a colonoscopy in the past several years. He denies any significant pain, including any significant abdominal pain. He does have a history of constipation and frequently has to use suppositories, including over the past few days. There are no alleviating or exacerbating factors to his symptoms. In ED he was profoundly orthostatic and called for admission for further treatment. [He was just seen for chest pain earlier this week and on 06/13/19 underwent a cardiac cath - 1. Severe [place] vessel coronary artery disease s/p CABG as described above with chronically and totally occluded SVG to RCA, SVG to OM and SVG to LAD with distal reconstitution of LAD and PDA/RCA via collaterals. The left internal mammary artery was not used for grafting. 2. Diaphragmatic wall hypokinesis with ejection fraction estimated at 55%. He was discharged on ranolazine with good effect and started on atorvastatin. He was continued on ASA and eliquis for stroke prevention. Discharged on 06/14/2019] In ED notably hemoccult positive and Cr 1.4 up from baseline 0.9. EKG shows Normal sinus rhythm versus underlying atrial flutter, at a rate of 72 beats for minute, normal axis, normal intervals, there are no acute ischemic ST/T changes. Inferior Q waves are present, poor anterior R-wave progression is present Past Medical History Cardiovascular: AFIB, CAD, HTN, ND Pulmonary: Bronchitis Heme/Onc: Other Past Surgical History Past Surgical History: CABG Family History Family History: Coronary Artery Disease Social History Smoke: No ALCOHOL: none Drugs: None Current Problem List Problem List Problems Medical Problems: (1) Anticoagulated Status: Acute (2) Lower GI bleeding Status: Acute Current Medications Current Medications Current Medications Sodium Chloride 1,000 ml @ 1,000 mls/hr 1X ONCE IV Last administered on 06/19/19at 15:15; Start 06/19/19 at 15:00; Stop 06/19/19 at 15:59; Status DC Active Scripts Active Clopidogrel (Clopidogrel Bisulfate) 75 Mg Tablet 1 Tab PO DAILY Voltaren (Diclofenac Sodium) 100 Gm Gel..gram. 1 Roxane TP BID 30 Days Lipitor (Atorvastatin Calcium) 40 Mg Tablet 1 Tab PO QHS Ranexa (Ranolazine) 500 Mg Tab.er.12h 1 Tab PO BID 30 Days Reported Eliquis (Apixaban) 2.5 Mg Tablet 2.5 Mg PO BID Flomax (Tamsulosin Hcl) 0.4 Mg Cap.er.24h 1 Cap PO DAILY Oxybutynin Chloride Er (Oxybutynin Chloride) 15 Mg Tab.er.24 1 Tab PO HS Symbicort 160-4.5 Mcg Inhaler (Budesonide/Formoterol Fumarate) 10.2 Gm Hfa.aer.ad 2 Puff IH BID Dulcolax (Bisacodyl) 5 Mg Tablet.dr 5 Mg PO HS PRN Proventil Hfa Inhaler (Albuterol Sulfate) 6.7 Gm Hfa.aer.ad 2 Puff IH PRN Q4HRS PRN Benicar (Olmesartan Medoxomil) 20 Mg Tablet 20 Mg PO BID Aspir 81 (Aspirin) 81 Mg Tablet.dr 1 Tab PO HS Temazepam 15 Mg Capsule 30 Mg PO QHS Sotalol (Sotalol Hcl) 80 Mg Tablet 60 Mg PO BID Allergies Allergies: Coded Allergies: Iodine and Iodide Containing Produc (Verified Allergy, Severe, Swelling, 11/08/17) naproxen (Verified Allergy, Severe, throat swells and hives, 11/10/17) hydrocodone (Verified Allergy, Intermediate, hives, 11/10/17) takes oxycodone at home lisinopril (Verified Allergy, Intermediate, cough, 11/10/17) ROS General: YES: Fatigue, Malaise, Appetite; No: Chills, Night Sweats, Other PSYCHOLOGICAL ROS: No: Anxiety, Behavioral Disorder, Concentration difficultie, Decreased libido, Depression, Disorientation, Hallucinations, Hostility, Irritablity, Memory difficulties, Mood Swings, Obsessive thoughts, Physical abuse, Sexual abuse, Sleep disturbances, Suicidal ideation, Other Eyes: No Blurry vision, No Decreased vision, No Double vision, No Dry eyes, No Excessive tearing, No Eye Pain, No Itchy Eyes, No Loss of vision, No Photophobia, No Scotomata, No Uses contacts, No Uses glasses, No Other HEENT: No: Heacaches, Visual Changes, Hearing change, Nasal congestion, Nasal discharge, Oral lesions, Sinus pain, Sore Throat, Epistaxis, Sneezing, Snoring, Tinnitus, Vertigo, Vocal changes, Other ALLERGY AND IMMUNOLOGY: No: Hives, Insect Bite Sensitivity, Itchy/Watery Eyes, Nasal Congestion, Post Nasal Drip, Seasonal Allergies, Other Hematological and Lymphatic: No: Bleeding Problems, Blood Clots, Blood Transfusions, Brusing, Night Sweats, Pallor, Swollen Lymph Nodes, Other ENDOCRINE: No: Breast Changes, Galactorrhea, Hair Pattern Changes, Hot Flashes, Malaise/lethargy, Mood Swings, Palpitations, Polydipsia/polyuria, Skin Changes, Temperature Intolerance, Unexpected Weight Changes, Other Breast: No New/Changing Breast Lumps, No Nipple changes, No Nipple discharge, No Other Respiratory: No: Cough, Hemoptysis, Orthopnea, Pleuritic Pain, Shortness of breath, SOB with excertion, Sputum Changes, Stridor, Tachypnea, Wheezing, Other Cardiovascular: yes Chest Pain; No Palpitations, No Orthopnea, No Paroxysmal Noc. Dyspnea, No Edema, No Lt Headedness, No Other Gastrointestinal: Yes Nausea, Yes Melena, Yes Hematochezia; No Vomiting, No Abdominal Pain, No Diarrhea, No Constipation, No Other Genitourinary: No Dysuria, No Frequency, No Incontinence, No Hematuria, No Retention, No Discharge, No Urgency, No Pain, No Flank Pain, No Other, No , No , No , No , No , No , No Musculoskeletal: No Gait Disturbance, No Joint Pain, No Joint Stiffness, No Joint Swelling, No Muscle Pain, No Muscular Weakness, No Pain In:, No Swelling In:, No Other Neurological: No Behavorial Changes, No Bowel/Bladder ControlChng, No Confusion, No Dizziness, No Gait Disturbance, No Headaches, No Impaired Coord/balance, No Memory Loss, No Numbness/Tingling, No Seizures, No Speech Problems, No Tremors, No Visual Changes, No Weakness, No Other Skin: No Dry Skin, No Eczema, No Hair Changes, No Lumps, No Mole Changes, No Mottling, No Nail Changes, No Pruritus, No Rash, No Skin Lesion Changes, No Other, No Acne Physical Exam General: Alert, Oriented X3, Cooperative, No acute distress HEENT: Atraumatic, PERRLA, EOMI, Mucous membr. moist/pink Lungs: Clear to auscultation, Normal air movement Heart: S1S2, irregularly irregular Abdomen: Normal bowel sounds, Soft, No tenderness, No hepatosplenomegaly, No masses Rectal Exam: hemorrhoids Extremities: No clubbing, No cyanosis, No edema, Normal pulses, No tenderness/swelling Skin: No rashes, No breakdown, No significant lesion Neuro: Normal gait, Normal speech, Strength at 5/5 X4 ext, Normal tone, Sensation intact, Cranial nerves 3-12 NL, Reflexes 2+ Psych/Mental Status: Mental status NL, Mood NL Vitals Vitals Vital Signs Date Time Temp Pulse Resp B/P (MAP) Pulse Ox O2 Delivery O2 Flow Rate FiO2 06/19/19 14:30 98.2 82 16 138/84 (102) 98 Room Air 98.2 Labs Labs Laboratory Tests Test 06/19/19 14:45 06/19/19 15:10 Stool Occult Blood Positive (NEG) White Blood Count 8.3 x10^3/uL (4.0-11.0) Red Blood Count 5.07 x10^6/uL (4.30-5.70) Hemoglobin 16.0 g/dL (13.0-17.5) Hematocrit 47.0 % (39.0-53.0) Mean Corpuscular Volume 93 fL (79-100) Mean Corpuscular Hemoglobin 32 pg (25-35) Mean Corpuscular Hemoglobin Concent 34 g/dL (31-37) Red Cell Distribution Width 14.2 % (11.5-14.5) Platelet Count 191 x10^3/uL (140-400) Neutrophils (%) (Auto) 79 % (31-73) Lymphocytes (%) (Auto) 12 % (24-48) Monocytes (%) (Auto) 7 % (0-9) Eosinophils (%) (Auto) 2 % (0-3) Basophils (%) (Auto) 1 % (0-3) Neutrophils # (Auto) 6.5 x10^3/uL (1.8-7.7) Lymphocytes # (Auto) 1.0 x10^3/uL (1.0-4.8) Monocytes # (Auto) 0.6 x10^3/uL (0.0-1.1) Eosinophils # (Auto) 0.2 x10^3/uL (0.0-0.7) Basophils # (Auto) 0.0 x10^3/uL (0.0-0.2) Prothrombin Time 15.2 SEC (11.7-14.0) Prothromb Time International Ratio 1.2 (0.8-1.1) Activated Partial Thromboplast Time 32 SEC (24-38) Sodium Level 139 mmol/L (136-145) Potassium Level 4.4 mmol/L (3.5-5.1) Chloride Level 103 mmol/L (98-107) Carbon Dioxide Level 27 mmol/L (21-32) Anion Gap 9 (6-14) Blood Urea Nitrogen 25 mg/dL (8-26) Creatinine 1.4 mg/dL (0.7-1.3) Estimated GFR (Cockcroft-Gault) 49.0 Glucose Level 111 mg/dL (70-99) Calcium Level 9.0 mg/dL (8.5-10.1) Laboratory Tests Test 06/19/19 14:45 06/19/19 15:10 Stool Occult Blood Positive (NEG) White Blood Count 8.3 x10^3/uL (4.0-11.0) Red Blood Count 5.07 x10^6/uL (4.30-5.70) Hemoglobin 16.0 g/dL (13.0-17.5) Hematocrit 47.0 % (39.0-53.0) Mean Corpuscular Volume 93 fL (79-100) Mean Corpuscular Hemoglobin 32 pg (25-35) Mean Corpuscular Hemoglobin Concent 34 g/dL (31-37) Red Cell Distribution Width 14.2 % (11.5-14.5) Platelet Count 191 x10^3/uL (140-400) Neutrophils (%) (Auto) 79 % (31-73) Lymphocytes (%) (Auto) 12 % (24-48) Monocytes (%) (Auto) 7 % (0-9) Eosinophils (%) (Auto) 2 % (0-3) Basophils (%) (Auto) 1 % (0-3) Neutrophils # (Auto) 6.5 x10^3/uL (1.8-7.7) Lymphocytes # (Auto) 1.0 x10^3/uL (1.0-4.8) Monocytes # (Auto) 0.6 x10^3/uL (0.0-1.1) Eosinophils # (Auto) 0.2 x10^3/uL (0.0-0.7) Basophils # (Auto) 0.0 x10^3/uL (0.0-0.2) Prothrombin Time 15.2 SEC (11.7-14.0) Prothromb Time International Ratio 1.2 (0.8-1.1) Activated Partial Thromboplast Time 32 SEC (24-38) Sodium Level 139 mmol/L (136-145) Potassium Level 4.4 mmol/L (3.5-5.1) Chloride Level 103 mmol/L (98-107) Carbon Dioxide Level 27 mmol/L (21-32) Anion Gap 9 (6-14) Blood Urea Nitrogen 25 mg/dL (8-26) Creatinine 1.4 mg/dL (0.7-1.3) Estimated GFR (Cockcroft-Gault) 49.0 Glucose Level 111 mg/dL (70-99) Calcium Level 9.0 mg/dL (8.5-10.1) VTE Prophylaxis Ordered VTE Prophylaxis Devices: Yes VTE Pharmacological Prophylaxi: Yes Assessment/Plan Assessment/Plan A/P: Lower GI bleeding - hemoccult positive. Trend Hb, consult GI. Hold blood thinners Orthostatic hypotension - likely hypovolemic vs acute GI bleed LISANDRO - likely vasomotor nephropathy. He did also have recent cardiac angiography, IVF for now Coronary artery disease status post CABG in 2002 - per patient 4 vessel graft historically. Will cont BB, statin, Hold GEE for LISANDRO. Hold ASA for GI bleed Hypertension - cont meds Dyslipidemia - cont meds Afib - on sotalol 60mg BID as well as eliquis. Will continue. F/u cardiology recs. Hold eliquis for GI bleed. 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 FEN - Cardiac diet PPX - GI bleed, SCDs FULL CODE Dispo - inpatient for lower GI bleed GUERDA CORNELIUS MD Jun 19, 2019 16:13
[2019-06-19] MEDS ORDERED: BISACODYL 5 MG TABLET.DR. PO PRN (16:15)
[2019-06-19] MEDS ORDERED: ALBUTEROL SULFATE 2.5 MG/3 ML NEBU. INH PRN (16:15)
[2019-06-19 17:15] VITALS: BP 143/92
[2019-06-19] MEDS: IV NORMAL SALINE 1000ML BAG 1,000 ML IV SCH (18:42)
[2019-06-19 19:00] VITALS: BP 132/84
[2019-06-19] MEDS: BUDESONIDE 0.5 MG/2 ML NEBU. NEB SCH (19:52)
[2019-06-19] MEDS: ALBUTEROL SULFATE 2.5 MG/3 ML NEBU. NEB SCH (19:52)
[2019-06-19] MEDS: ATORVASTATIN CALCIUM 40 MG TABLET. PO SCH (20:56)
[2019-06-19] MEDS: RANOLAZINE 500 MG TAB.ER.12H PO SCH (20:56)
[2019-06-19] MEDS: TEMAZEPAM 15 MG CAPSULE PO SCH (20:56)
[2019-06-19] MEDS: OXYBUTYNIN CHLORIDE 5 MG TABLET PO SCH (20:56)
[2019-06-19] MEDS: SOTALOL 80 MG TABLET. PO SCH (20:56)
[2019-06-19] MEDS: PSYLLIUM HUSK (SUGAR FREE) 1 PKT PACKET PO SCH (20:57)
[2019-06-19] MEDS: DICLOFENAC SODIUM 1% TOPICAL GEL 100GM TUBE. TP SCH (21:04)
[2019-06-19 23:05] VITALS: BP 159/82
[2019-06-20 03:18] VITALS: BP 108/67
[2019-06-20] MEDS: IV NORMAL SALINE 1000ML BAG 1,000 ML IV SCH ×2 (04:14→13:08)
[2019-06-20 04:41] LABS: BASO % 1 % (0-3); EOS # 0.2 x10^3/uL (0.0-0.7); EOS % 4 % (0-3); HEMATOCRIT 42.6 % (39.0-53.0); HEMOGLOBIN 14.4 g/dL (13.0-17.5); LYMPH # 1.4 x10^3/uL (1.0-4.8); LYMPH % 22 % (24-48); MEAN CORPUSCULAR HEMOGLOBIN 32 pg (25-35); MEAN CORPUSCULAR HGB CONC 34 g/dL (31-37); MEAN CORPUSCULAR VOLUME 93 fL (79-100); MONO # 0.7 x10^3/uL (0.0-1.1); MONO % 10 % (0-9); NEUT % 63 % (31-73); PLATELET COUNT 151 x10^3/uL (140-400); RED BLOOD COUNT 4.56 x10^6/uL (4.30-5.70); WHITE BLOOD COUNT 6.4 x10^3/uL (4.0-11.0)
[2019-06-20 05:06] LABS: CALCIUM 8.5 mg/dL (8.5-10.1); GFR 72.3
[2019-06-20 07:00] VITALS: BP 182/94
[2019-06-20] MEDS: ALBUTEROL SULFATE 2.5 MG/3 ML NEBU. NEB SCH ×4 (07:22→20:13)
--- NOTE | 2019-06-20 08:57 | EKG ---
[facility] [address] [place] [id number] Test Date: 2019-06-19 Test Time: 14:59:08 Pat Name: HÉCTOR GARCIA Department: Room: Gender: M [employer] Hand: : 1940 Requested By: LYSSA GARNICA Order Number: [id number] Reading MD: Measurements Intervals [place] Rate: 73 P: -93 MO: 188 QRS: 68 QRSD: 102 T: 103 QT: 398 QTc: 442 Interpretive Statements SINUS RHYTHM R-S TRANSITION ZONE IN V LEADS DISPLACED TO THE LEFT T ABNORMALITY IN HIGH LATERAL LEADS NON SPECIFIC ST-T ABNORMALITY (ELEVATION) NON SPECIFIC ST DEPRESSION ABNORMAL ECG No previous ECG available for comparison
[2019-06-20] MEDS: DICLOFENAC SODIUM 1% TOPICAL GEL 100GM TUBE. TP SCH ×2 (10:14→22:06)
[2019-06-20] MEDS: TAMSULOSIN 0.4 MG CAP.ER.24H. PO SCH (10:14)
[2019-06-20] MEDS: OXYBUTYNIN CHLORIDE 5 MG TABLET PO SCH ×3 (10:15→22:05)
[2019-06-20] MEDS: RANOLAZINE 500 MG TAB.ER.12H PO SCH ×2 (10:15→22:03)
[2019-06-20] MEDS: SOTALOL 80 MG TABLET. PO SCH ×2 (10:15→22:05)
[2019-06-20] MEDS: LOSARTAN POTASSIUM 50 MG TABLET. PO SCH (10:15)
[2019-06-20 10:59] VITALS: BP 165/93
[2019-06-20] MEDS: BUDESONIDE 0.5 MG/2 ML NEBU. NEB SCH ×2 (11:03→20:13)
--- NOTE | 2019-06-20 12:00 | PDOC ---
PROGRESS NOTES Chief Complaint Chief Complaint Lower GI bleeding - held blood thinners, has had hemorrhoids, Orthostatic hypotension - likely hypovolemic vs acute GI bleed LISANDRO - likely vasomotor nephropathy. He did also have recent cardiac angiography, IVF for now Coronary artery disease status post CABG in 2002 - per patient 4 vessel graft historically. Will cont BB, statin, Hold GEE for LISANDRO. Hold ASA for GI bleed Hypertension - cont meds Dyslipidemia - cont meds Afib - on sotalol 60mg BID as well as eliquis. Will continue. F/u cardiology recs. Hold eliquis for GI bleed. 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 History of Present Illness History of Present Illness still some blood in stool, much improved pt requested cardio consult for his meds, if anti-plt can be held, I would restart today, he asked for consult OOB to chair well known to Dr. Kruse, Vitals Vitals Vital Signs Date Time Temp Pulse Resp B/P (MAP) Pulse Ox O2 Delivery O2 Flow Rate FiO2 06/20/19 11:03 95 Room Air 06/20/19 10:59 97.7 61 18 165/93 (117) 97.7 Physical Exam General: Alert, Oriented X3, Cooperative, No acute distress Abdomen: Normal bowel sounds, Soft, No tenderness, No hepatosplenomegaly, No masses Extremities: No clubbing, No cyanosis, No edema, Normal pulses, No tenderness/swelling Skin: No rashes, No breakdown, No significant lesion Labs LABS Laboratory Tests Test 06/19/19 14:45 06/19/19 15:10 06/20/19 04:30 Stool Occult Blood Positive (NEG) White Blood Count 8.3 x10^3/uL (4.0-11.0) 6.4 x10^3/uL (4.0-11.0) Red Blood Count 5.07 x10^6/uL (4.30-5.70) 4.56 x10^6/uL (4.30-5.70) Hemoglobin 16.0 g/dL (13.0-17.5) 14.4 g/dL (13.0-17.5) Hematocrit 47.0 % (39.0-53.0) 42.6 % (39.0-53.0) Mean Corpuscular Volume 93 fL (79-100) 93 fL (79-100) Mean Corpuscular Hemoglobin 32 pg (25-35) 32 pg (25-35) Mean Corpuscular Hemoglobin Concent 34 g/dL (31-37) 34 g/dL (31-37) Red Cell Distribution Width 14.2 % (11.5-14.5) 14.0 % (11.5-14.5) Platelet Count 191 x10^3/uL (140-400) 151 x10^3/uL (140-400) Neutrophils (%) (Auto) 79 % (31-73) 63 % (31-73) Lymphocytes (%) (Auto) 12 % (24-48) 22 % (24-48) Monocytes (%) (Auto) 7 % (0-9) 10 % (0-9) Eosinophils (%) (Auto) 2 % (0-3) 4 % (0-3) Basophils (%) (Auto) 1 % (0-3) 1 % (0-3) Neutrophils # (Auto) 6.5 x10^3/uL (1.8-7.7) 4.0 x10^3/uL (1.8-7.7) Lymphocytes # (Auto) 1.0 x10^3/uL (1.0-4.8) 1.4 x10^3/uL (1.0-4.8) Monocytes # (Auto) 0.6 x10^3/uL (0.0-1.1) 0.7 x10^3/uL (0.0-1.1) Eosinophils # (Auto) 0.2 x10^3/uL (0.0-0.7) 0.2 x10^3/uL (0.0-0.7) Basophils # (Auto) 0.0 x10^3/uL (0.0-0.2) 0.0 x10^3/uL (0.0-0.2) Prothrombin Time 15.2 SEC (11.7-14.0) Prothromb Time International Ratio 1.2 (0.8-1.1) Activated Partial Thromboplast Time 32 SEC (24-38) Sodium Level 139 mmol/L (136-145) 143 mmol/L (136-145) Potassium Level 4.4 mmol/L (3.5-5.1) 4.0 mmol/L (3.5-5.1) Chloride Level 103 mmol/L (98-107) 108 mmol/L (98-107) Carbon Dioxide Level 27 mmol/L (21-32) 28 mmol/L (21-32) Anion Gap 9 (6-14) 7 (6-14) Blood Urea Nitrogen 25 mg/dL (8-26) 19 mg/dL (8-26) Creatinine 1.4 mg/dL (0.7-1.3) 1.0 mg/dL (0.7-1.3) Estimated GFR (Cockcroft-Gault) 49.0 72.3 Glucose Level 111 mg/dL (70-99) 96 mg/dL (70-99) Calcium Level 9.0 mg/dL (8.5-10.1) 8.5 mg/dL (8.5-10.1) Assessment and Plan Assessmemt and Plan Problems Medical Problems: (1) Anticoagulated Status: Acute (2) Lower GI bleeding Status: Acute Comment Review of Relevant I have reviewed the following items amy (where applicable) has been applied. Labs Laboratory Tests Test 06/19/19 14:45 06/19/19 15:10 06/20/19 04:30 Stool Occult Blood Positive (NEG) White Blood Count 8.3 x10^3/uL (4.0-11.0) 6.4 x10^3/uL (4.0-11.0) Red Blood Count 5.07 x10^6/uL (4.30-5.70) 4.56 x10^6/uL (4.30-5.70) Hemoglobin 16.0 g/dL (13.0-17.5) 14.4 g/dL (13.0-17.5) Hematocrit 47.0 % (39.0-53.0) 42.6 % (39.0-53.0) Mean Corpuscular Volume 93 fL (79-100) 93 fL (79-100) Mean Corpuscular Hemoglobin 32 pg (25-35) 32 pg (25-35) Mean Corpuscular Hemoglobin Concent 34 g/dL (31-37) 34 g/dL (31-37) Red Cell Distribution Width 14.2 % (11.5-14.5) 14.0 % (11.5-14.5) Platelet Count 191 x10^3/uL (140-400) 151 x10^3/uL (140-400) Neutrophils (%) (Auto) 79 % (31-73) 63 % (31-73) Lymphocytes (%) (Auto) 12 % (24-48) 22 % (24-48) Monocytes (%) (Auto) 7 % (0-9) 10 % (0-9) Eosinophils (%) (Auto) 2 % (0-3) 4 % (0-3) Basophils (%) (Auto) 1 % (0-3) 1 % (0-3) Neutrophils # (Auto) 6.5 x10^3/uL (1.8-7.7) 4.0 x10^3/uL (1.8-7.7) Lymphocytes # (Auto) 1.0 x10^3/uL (1.0-4.8) 1.4 x10^3/uL (1.0-4.8) Monocytes # (Auto) 0.6 x10^3/uL (0.0-1.1) 0.7 x10^3/uL (0.0-1.1) Eosinophils # (Auto) 0.2 x10^3/uL (0.0-0.7) 0.2 x10^3/uL (0.0-0.7) Basophils # (Auto) 0.0 x10^3/uL (0.0-0.2) 0.0 x10^3/uL (0.0-0.2) Prothrombin Time 15.2 SEC (11.7-14.0) Prothromb Time International Ratio 1.2 (0.8-1.1) Activated Partial Thromboplast Time 32 SEC (24-38) Sodium Level 139 mmol/L (136-145) 143 mmol/L (136-145) Potassium Level 4.4 mmol/L (3.5-5.1) 4.0 mmol/L (3.5-5.1) Chloride Level 103 mmol/L (98-107) 108 mmol/L (98-107) Carbon Dioxide Level 27 mmol/L (21-32) 28 mmol/L (21-32) Anion Gap 9 (6-14) 7 (6-14) Blood Urea Nitrogen 25 mg/dL (8-26) 19 mg/dL (8-26) Creatinine 1.4 mg/dL (0.7-1.3) 1.0 mg/dL (0.7-1.3) Estimated GFR (Cockcroft-Gault) 49.0 72.3 Glucose Level 111 mg/dL (70-99) 96 mg/dL (70-99) Calcium Level 9.0 mg/dL (8.5-10.1) 8.5 mg/dL (8.5-10.1) Laboratory Tests Test 06/19/19 14:45 06/19/19 15:10 06/20/19 04:30 Stool Occult Blood Positive (NEG) White Blood Count 8.3 x10^3/uL (4.0-11.0) 6.4 x10^3/uL (4.0-11.0) Red Blood Count 5.07 x10^6/uL (4.30-5.70) 4.56 x10^6/uL (4.30-5.70) Hemoglobin 16.0 g/dL (13.0-17.5) 14.4 g/dL (13.0-17.5) Hematocrit 47.0 % (39.0-53.0) 42.6 % (39.0-53.0) Mean Corpuscular Volume 93 fL (79-100) 93 fL (79-100) Mean Corpuscular Hemoglobin 32 pg (25-35) 32 pg (25-35) Mean Corpuscular Hemoglobin Concent 34 g/dL (31-37) 34 g/dL (31-37) Red Cell Distribution Width 14.2 % (11.5-14.5) 14.0 % (11.5-14.5) Platelet Count 191 x10^3/uL (140-400) 151 x10^3/uL (140-400) Neutrophils (%) (Auto) 79 % (31-73) 63 % (31-73) Lymphocytes (%) (Auto) 12 % (24-48) 22 % (24-48) Monocytes (%) (Auto) 7 % (0-9) 10 % (0-9) Eosinophils (%) (Auto) 2 % (0-3) 4 % (0-3) Basophils (%) (Auto) 1 % (0-3) 1 % (0-3) Neutrophils # (Auto) 6.5 x10^3/uL (1.8-7.7) 4.0 x10^3/uL (1.8-7.7) Lymphocytes # (Auto) 1.0 x10^3/uL (1.0-4.8) 1.4 x10^3/uL (1.0-4.8) Monocytes # (Auto) 0.6 x10^3/uL (0.0-1.1) 0.7 x10^3/uL (0.0-1.1) Eosinophils # (Auto) 0.2 x10^3/uL (0.0-0.7) 0.2 x10^3/uL (0.0-0.7) Basophils # (Auto) 0.0 x10^3/uL (0.0-0.2) 0.0 x10^3/uL (0.0-0.2) Prothrombin Time 15.2 SEC (11.7-14.0) Prothromb Time International Ratio 1.2 (0.8-1.1) Activated Partial Thromboplast Time 32 SEC (24-38) Sodium Level 139 mmol/L (136-145) 143 mmol/L (136-145) Potassium Level 4.4 mmol/L (3.5-5.1) 4.0 mmol/L (3.5-5.1) Chloride Level 103 mmol/L (98-107) 108 mmol/L (98-107) Carbon Dioxide Level 27 mmol/L (21-32) 28 mmol/L (21-32) Anion Gap 9 (6-14) 7 (6-14) Blood Urea Nitrogen 25 mg/dL (8-26) 19 mg/dL (8-26) Creatinine 1.4 mg/dL (0.7-1.3) 1.0 mg/dL (0.7-1.3) Estimated GFR (Cockcroft-Gault) 49.0 72.3 Glucose Level 111 mg/dL (70-99) 96 mg/dL (70-99) Calcium Level 9.0 mg/dL (8.5-10.1) 8.5 mg/dL (8.5-10.1) Medications Current Medications Sodium Chloride 1,000 ml @ 1,000 mls/hr 1X ONCE IV Last administered on 06/19/19 15:15; Start 06/19/19 at 15:00; Stop 06/19/19 at 15:59; Status DC Albuterol Sulfate (Ventolin Neb Soln) 2.5 mg PRN Q4HRS PRN INH SHORTNESS OF BREATH; Start 06/19/19 at 16:15 Atorvastatin Calcium (Lipitor) 40 mg QHS PO Last administered on 06/19/19 20:56; Start 06/19/19 at 21:00 Bisacodyl (Dulcolax Tab) 5 mg HS PRN PO CONSTIPATION Last administered on 06/19/19 20:56; Start 06/19/19 at 16:15 Diclofenac Sodium (Voltaren) 1 roxane BID TP Last administered on 06/20/19 10:14; Start 06/19/19 at 21:00 Ranolazine (Ranexa) 500 mg BID PO Last administered on 06/20/19 10:15; Start 06/19/19 at 21:00 Sotalol HCl (Betapace) 60 mg BID PO Last administered on 06/20/19 10:15; Start 06/19/19 at 21:00 Tamsulosin HCl (Flomax) 0.4 mg DAILY PO Last administered on 06/20/19 10:14; Start 06/20/19 at 09:00 Temazepam (Restoril) 30 mg QHS PO Last administered on 06/19/19 20:56; Start 06/19/19 at 21:00 Budesonide (Pulmicort) 0.5 mg RTBID NEB Last administered on 06/20/19 11:03; Start 06/19/19 at 20:00 Albuterol Sulfate (Ventolin Neb Soln) 2.5 mg RTQID NEB Last administered on 06/20/19 11:03; Start 06/19/19 at 20:00 Sodium Chloride 1,000 ml @ 100 mls/hr Q10H IV Last administered on 06/20/19 04:14; Start 06/19/19 at 16:30 Psyllium Hydrophilic Mucilloid (Metamucil Fiber Packet) 1 pkt QHS PO Last administered on 06/19/19at 20:57; Start 06/19/19 at 21:00 Losartan Potassium (Cozaar) 100 mg DAILY PO Last administered on 06/20/19at 10:15; Start 06/20/19 at 09:00 Oxybutynin Chloride (Ditropan) 5 mg [id number] PO Last administered on 06/20/19at 10:15; Start 06/19/19 at 21:00 Active Scripts Active Clopidogrel (Clopidogrel Bisulfate) 75 Mg Tablet 1 Tab PO DAILY Voltaren (Diclofenac Sodium) 100 Gm Gel..gram. 1 Roxane TP BID 30 Days Lipitor (Atorvastatin Calcium) 40 Mg Tablet 1 Tab PO QHS Ranexa (Ranolazine) 500 Mg Tab.er.12h 1 Tab PO BID 30 Days Reported Eliquis (Apixaban) 2.5 Mg Tablet 2.5 Mg PO BID Flomax (Tamsulosin Hcl) 0.4 Mg Cap.er.24h 1 Cap PO DAILY Oxybutynin Chloride Er (Oxybutynin Chloride) 15 Mg Tab.er.24 1 Tab PO HS Symbicort 160-4.5 Mcg Inhaler (Budesonide/Formoterol Fumarate) 10.2 Gm Hfa.aer.ad 2 Puff IH BID Dulcolax (Bisacodyl) 5 Mg Tablet.dr 5 Mg PO HS PRN Proventil Hfa Inhaler (Albuterol Sulfate) 6.7 Gm Hfa.aer.ad 2 Puff IH PRN Q4HRS PRN Benicar (Olmesartan Medoxomil) 20 Mg Tablet 20 Mg PO BID Aspir 81 (Aspirin) 81 Mg Tablet.dr 1 Tab PO HS Temazepam 15 Mg Capsule 30 Mg PO QHS Sotalol (Sotalol Hcl) 80 Mg Tablet 60 Mg PO BID Vitals/I & O Vital Sign - Last 24 Hours 06/19/19 06/19/19 06/19/19 06/19/19 14:30 15:00 16:00 17:15 Temp 98.2 98.7 98.2 98.7 Pulse 82 82 81 73 Resp 16 18 16 18 B/P (MAP) 138/84 (102) 134/80 (98) 139/63 (88) 143/92 (109) Pulse Ox 98 97 98 97 O2 Delivery Room Air Room Air Room Air Room Air 06/19/19 06/19/19 06/19/19 06/19/19 19:00 19:52 20:00 20:56 Temp 97.8 97.8 Pulse 61 61 Resp 20 B/P (MAP) 132/84 (100) 132/84 Pulse Ox 93 96 O2 Delivery Room Air Room Air Room Air 06/19/19 06/19/19 06/20/19 06/20/19 20:56 23:05 03:18 07:00 Temp 97.8 97.1 97.7 97.8 97.1 97.7 Pulse 61 60 66 60 Resp 20 20 18 B/P (MAP) 132/84 159/82 (107) 108/67 (81) 182/94 (123) Pulse Ox 95 96 98 O2 Delivery Room Air Room Air Room Air 06/20/19 06/20/19 06/20/19 06/20/19 07:23 08:00 10:15 10:15 Pulse 61 61 B/P (MAP) 165/93 165/93 Pulse Ox 95 O2 Delivery Room Air Room Air 06/20/19 06/20/19 06/20/19 10:15 10:59 11:03 Temp 97.7 97.7 Pulse 61 61 Resp 18 B/P (MAP) 165/93 165/93 (117) Pulse Ox 94 95 O2 Delivery Room Air Room Air Intake and Output 06/19/19 06/19/19 06/20/19 15:00 23:00 07:00 Intake Total 1000 ml Balance 1000 ml REGINALDO ANAYA MD Jun 20, 2019 12:00
--- NOTE | 2019-06-20 12:06 | PDOC2 ---
LETY ALMONTE TENNIS [employer]K TEAM MEMBER 06/20/19 1206: CARDIAC CONSULT DATE OF CONSULT Date of Consult DATE: 06/20/19 TIME: 11:53 REASON FOR CONSULT Reason for Consult: recent stent, now GI bleed SOURCE Source: Chart review, Patient HISTORY OF PRESENT ILLNESS HISTORY OF PRESENT ILLNESS This is a pleasant 79 yo male admitted for complains of rectal bleed. Reports that he started having bvright red blood and chunks of dark blood in his stool last Thursday. This continued on and actaully had small bouts this morning. Denies any abdominal pain and no n/v. No complains of chest pain, SOA and has been tolerating his medications. His last dose of plavix was Thursday and eliquis was yesterday morning. Consult is for CAD with past stent. So far no cardiac symptoms. No palpitations nor frequent dizziness. PAST MEDICAL HISTORY Cardiovascular: AFIB, CAD, HTN, Hyperlipidemia, Other (SSS) Pulmonary: Bronchitis, COPD GI: Hemorrhoids Hepatobiliary: Cholelithiasis Psych: Anxiety Musculoskeletal: Osteoarthritis Dermatology: Melanoma PAST SURGICAL HISTORY Past Surgical History: Pacemaker, CABG, Tonsillectomy, Other (skin CA removal) FAMILY HISTORY Family History: Coronary Artery Disease SOCIAL HISTORY Smoke: No ALCOHOL: none Drugs: None Lives: with Family CURRENT MEDICATIONS CURRENT MEDICATIONS Current Medications Medications (Trade) Dose Ordered Sig/Leida Route PRN Reason Start Time Stop Time Status Last Admin Dose Admin Sodium Chloride 1,000 ml @ 1,000 mls/hr 1X ONCE IV 06/19/19 15:00 06/19/19 15:59 DC 06/19/19 15:15 Atorvastatin Calcium (Lipitor) 40 mg QHS PO 06/19/19 21:00 06/19/19 20:56 Bisacodyl (Dulcolax Tab) 5 mg HS PRN PO CONSTIPATION 06/19/19 16:15 06/19/19 20:56 Diclofenac Sodium (Voltaren) 1 megan BID TP 06/19/19 21:00 06/20/19 10:14 Ranolazine (Ranexa) 500 mg BID PO 06/19/19 21:00 06/20/19 10:15 Sotalol HCl (Betapace) 60 mg BID PO 06/19/19 21:00 06/20/19 10:15 Tamsulosin HCl (Flomax) 0.4 mg DAILY PO 06/20/19 09:00 06/20/19 10:14 Temazepam (Restoril) 30 mg QHS PO 06/19/19 21:00 06/19/19 20:56 Budesonide (Pulmicort) 0.5 mg RTBID NEB 06/19/19 20:00 06/20/19 11:03 Albuterol Sulfate (Ventolin Neb Soln) 2.5 mg RTQID NEB 06/19/19 20:00 06/20/19 11:03 Sodium Chloride 1,000 ml @ 100 mls/hr Q10H IV 06/19/19 16:30 06/20/19 04:14 Psyllium Hydrophilic Mucilloid (Metamucil Fiber Packet) 1 pkt QHS PO 06/19/19 21:00 06/19/19 20:57 Losartan Potassium (Cozaar) 100 mg DAILY PO 06/20/19 09:00 06/20/19 10:15 Oxybutynin Chloride (Ditropan) 5 mg [id number] PO 06/19/19 21:00 06/20/19 10:15 ALLERGIES ALLERGIES: Coded Allergies: Iodine and Iodide Containing Produc (Verified Allergy, Severe, Swelling, 11/08/17) naproxen (Verified Allergy, Severe, throat swells and hives, 11/10/17) hydrocodone (Verified Allergy, Intermediate, hives, 11/10/17) takes oxycodone at home lisinopril (Verified Allergy, Intermediate, cough, 11/10/17) ROS Review of System 14 point ROS evaluated with pertinent positives noted per HPI PHYSICAL EXAM General: Alert, Oriented X3, Cooperative, No acute distress HEENT: Atraumatic, Mucous membr. moist/pink Lungs: Clear to auscultation, Normal air movement Heart: Regular rate, Normal S1, Normal S2, No murmurs Abdomen: Soft, No tenderness Extremities: No cyanosis, No edema Skin: No breakdown, No significant lesion Neuro: Normal speech, Sensation intact Psych/Mental Status: Mental status NL, Mood NL MUSCULOSKELETAL: Osteoarthritic changes both hands VITALS/I&O VITALS/I&O: Vital Signs Date Time Temp Pulse Resp B/P (MAP) Pulse Ox O2 Delivery O2 Flow Rate FiO2 06/20/19 11:03 95 Room Air 06/20/19 10:59 97.7 61 18 165/93 (117) 97.7 I & O 06/19/19 06/19/19 06/20/19 15:00 23:00 07:00 Intake Total 1000 ml Balance 1000 ml LABS Lab: Laboratory Tests Test 06/19/19 14:45 06/19/19 15:10 06/20/19 04:30 Stool Occult Blood Positive (NEG) White Blood Count 8.3 x10^3/uL (4.0-11.0) 6.4 x10^3/uL (4.0-11.0) Red Blood Count 5.07 x10^6/uL (4.30-5.70) 4.56 x10^6/uL (4.30-5.70) Hemoglobin 16.0 g/dL (13.0-17.5) 14.4 g/dL (13.0-17.5) Hematocrit 47.0 % (39.0-53.0) 42.6 % (39.0-53.0) Mean Corpuscular Volume 93 fL (79-100) 93 fL (79-100) Mean Corpuscular Hemoglobin 32 pg (25-35) 32 pg (25-35) Mean Corpuscular Hemoglobin Concent 34 g/dL (31-37) 34 g/dL (31-37) Red Cell Distribution Width 14.2 % (11.5-14.5) 14.0 % (11.5-14.5) Platelet Count 191 x10^3/uL (140-400) 151 x10^3/uL (140-400) Neutrophils (%) (Auto) 79 % (31-73) H 63 % (31-73) Lymphocytes (%) (Auto) 12 % (24-48) L 22 % (24-48) L Monocytes (%) (Auto) 7 % (0-9) 10 % (0-9) H Eosinophils (%) (Auto) 2 % (0-3) 4 % (0-3) H Basophils (%) (Auto) 1 % (0-3) 1 % (0-3) Neutrophils # (Auto) 6.5 x10^3/uL (1.8-7.7) 4.0 x10^3/uL (1.8-7.7) Lymphocytes # (Auto) 1.0 x10^3/uL (1.0-4.8) 1.4 x10^3/uL (1.0-4.8) Monocytes # (Auto) 0.6 x10^3/uL (0.0-1.1) 0.7 x10^3/uL (0.0-1.1) Eosinophils # (Auto) 0.2 x10^3/uL (0.0-0.7) 0.2 x10^3/uL (0.0-0.7) Basophils # (Auto) 0.0 x10^3/uL (0.0-0.2) 0.0 x10^3/uL (0.0-0.2) Prothrombin Time 15.2 SEC (11.7-14.0) H Prothrombin Time INR 1.2 (0.8-1.1) H Activated Partial Thromboplast Time 32 SEC (24-38) Sodium Level 139 mmol/L (136-145) 143 mmol/L (136-145) Potassium Level 4.4 mmol/L (3.5-5.1) 4.0 mmol/L (3.5-5.1) Chloride Level 103 mmol/L (98-107) 108 mmol/L (98-107) H Carbon Dioxide Level 27 mmol/L (21-32) 28 mmol/L (21-32) Anion Gap 9 (6-14) 7 (6-14) Blood Urea Nitrogen 25 mg/dL (8-26) 19 mg/dL (8-26) Creatinine 1.4 mg/dL (0.7-1.3) H 1.0 mg/dL (0.7-1.3) Estimated GFR (Cockcroft-Gault) 49.0 72.3 Glucose Level 111 mg/dL (70-99) H 96 mg/dL (70-99) Calcium Level 9.0 mg/dL (8.5-10.1) 8.5 mg/dL (8.5-10.1) Laboratory Tests 06/19/19 15:10 06/20/19 04:30 Laboratory Tests 06/19/19 15:10 06/20/19 04:30 ECHOCARDIOGRAM ECHOCARDIOGRAM <Conclusion> The left ventricular systolic function is normal and the ejection fraction is within normal range. The Ejection Fraction is 55-60%. Septal motion consistent with post-operative state. Otherwise, grossly normal wall motion. The ascending aorta is mildly dilated at 3.6 cm. DATE: 01/19/19 1158 HEART CATH HEART CATH FINDINGS A. Hemodynamics: Left ventricle end-diastolic pressure 20 mmHg. No pullback gradient across the aortic valve. B. Left ventriculography: Diaphragmatic wall hypokinesis with ejection fraction estimated at 55%. No significant mitral regurgitation seen. C. Coronary and bypass graft angiography: 1. The left main coronary artery arose from the left sinus of Valsalva, gave rise to the left anterior descending and left circumflex arteries and did not show any significant stenosis. 2. The left anterior descending artery showed a patent stent in the proximal segment. There was 100% chronic total occlusion noted in the midsegment with partial distal reconstitution of LAD from left to left collaterals. 3. The left circumflex artery showed 50% stenosis in the midsegment. The first obtuse marginal branch which is a small to medium caliber vessel showed subtotal occlusion in the proximal segment with distal reconstitution from collaterals. The second obtuse marginal branch that was grafted showed 50% stenosis in the proximal segment. 4. The right coronary artery arose from the right sinus of Valsalva and showed calcified 60% stenosis in the proximal segment. The posterior descending branch is 100% chronically occluded proximally. There is distal reconstitution from right to right collaterals with the reconstituted PDA showing 95% stenosis in the midsegment. 5. The saphenous vein graft to the right coronary artery showed 100% chronic total occlusion proximally. 6. The saphenous vein graft to the obtuse marginal branch showed 100% chronic total occlusion proximally. 7. The saphenous vein graft to the left anterior descending artery showed 100% chronic total occlusion proximal. Conclusion 1. Severe [place] vessel coronary artery disease s/p CABG as described above with chronically and totally occluded SVG to RCA, SVG to OM and SVG to LAD with distal reconstitution of LAD and PDA/RCA via collaterals. The left internal mammary artery was not used for grafting. 2. Diaphragmatic wall hypokinesis with ejection fraction estimated at 55%. Recommendations Medical Therapy DATE: 06/13/19 1228 ASSESSMENT/PLAN ASSESSMENT/PLAN 1. Rectal bleed: Hgb stable 2. CAD past CABG. recent LHC as noted above with patent LAD stent. Chronically occluded SVG to RCA but with collateralization. Clinically stable. 2. PAFIB; Maintaining SR per EKG 3. Hypertension; labile 4. Hyperlipidemia; on zetia. not previously been on statin 5. SSS s/p PPM; recent device check normal function. One episode of AF since 01/2019 Recommendations 1. No new stents in the last yr. Hold off plavix and eliquis till evaluated by GI. Resume when OK with GI. Could use ASA intermin if endoscopy is warranted. 2. Continue current regimen including ranexa and sotalol. 3. July 13 at 11AM follow up with ROD Blair MD 06/21/19 0958: CARDIAC CONSULT ASSESSMENT/PLAN ASSESSMENT/PLAN Patient seen and examined 06/20/19. Agree with REPAIRER CYLINDER HEADS's assessment and plan. CAD status clinically stable Recent cardiac catheterization results noted above PAF maintaining sinus rhythm Agree with holding Plavix and eliquis. Resume eliquis once GI workup for gastrointestinal bleeding is completed Thank you for your consultation LETY ALMONTE APRN Jun 20, 2019 12:06 ROD CHRISTY MD Jun 21, 2019 09:58
--- NOTE | 2019-06-20 13:44 | NUR ---
SW following for discharge planning. Discussed with RN, pt is from home with . RN advised no SW needs at this time. SW will continue to follow.
--- NOTE | 2019-06-20 13:48 | PDOC2 ---
CONSULT Date of Consult Date of Consult DATE: 06/20/19 TIME: 13:47 Reason for Consult Reason for Consult: Rectal bleed Past Medical History Cardiovascular: AFIB, CAD, HTN, Hyperlipidemia, Other (SSS) Pulmonary: Bronchitis, COPD GI: Hemorrhoids Heme/Onc: Other Hepatobiliary: Cholelithiasis Psych: Anxiety Musculoskeletal: Osteoarthritis Dermatology: Melanoma Past Surgical History Past Surgical History: Pacemaker, CABG, Tonsillectomy, Other (skin CA removal) Family History Family History: Coronary Artery Disease Social History No ALCOHOL: none Drugs: None Lives: with Family Current Problem List Problem List Problems Medical Problems: (1) Anticoagulated Status: Acute (2) Lower GI bleeding Status: Acute Current Medications Current Medications Current Medications Sodium Chloride 1,000 ml @ 1,000 mls/hr 1X ONCE IV Last administered on 06/19/19 15:15; Start 06/19/19 at 15:00; Stop 06/19/19 at 15:59; Status DC Albuterol Sulfate (Ventolin Neb Soln) 2.5 mg PRN Q4HRS PRN INH SHORTNESS OF BREATH; Start 06/19/19 at 16:15 Atorvastatin Calcium (Lipitor) 40 mg QHS PO Last administered on 06/19/19at 20:56; Start 06/19/19 at 21:00 Bisacodyl (Dulcolax Tab) 5 mg HS PRN PO CONSTIPATION Last administered on 06/19/19at 20:56; Start 06/19/19 at 16:15 Diclofenac Sodium (Voltaren) 1 roxane BID TP Last administered on 06/20/19at 10:14; Start 06/19/19 at 21:00 Ranolazine (Ranexa) 500 mg BID PO Last administered on 06/20/19 10:15; Start 06/19/19 at 21:00 Sotalol HCl (Betapace) 60 mg BID PO Last administered on 06/20/19 10:15; Start 06/19/19 at 21:00 Tamsulosin HCl (Flomax) 0.4 mg DAILY PO Last administered on 06/20/19at 10:14; Start 06/20/19 at 09:00 Temazepam (Restoril) 30 mg QHS PO Last administered on 06/19/19at 20:56; Start 06/19/19 at 21:00 Budesonide (Pulmicort) 0.5 mg RTBID NEB Last administered on 06/20/19 11:03; Start 06/19/19 at 20:00 Albuterol Sulfate (Ventolin Neb Soln) 2.5 mg RTQID NEB Last administered on at 11:03; Start 06/19/19 at 20:00 Sodium Chloride 1,000 ml @ 100 mls/hr Q10H IV Last administered on 06/20/19 13:08; Start 06/19/19 at 16:30 Psyllium Hydrophilic Mucilloid (Metamucil Fiber Packet) 1 pkt QHS PO Last administered on 06/19/19 20:57; Start 06/19/19 at 21:00 Losartan Potassium (Cozaar) 100 mg DAILY PO Last administered on 06/20/19 10:15; Start 06/20/19 at 09:00 Oxybutynin Chloride (Ditropan) 5 mg [id number] PO Last administered on 06/20/19at 13:07; Start 06/19/19 at 21:00 Active Scripts Active Clopidogrel (Clopidogrel Bisulfate) 75 Mg Tablet 1 Tab PO DAILY Voltaren (Diclofenac Sodium) 100 Gm Gel..gram. 1 Roxane TP BID 30 Days Lipitor (Atorvastatin Calcium) 40 Mg Tablet 1 Tab PO QHS Ranexa (Ranolazine) 500 Mg Tab.er.12h 1 Tab PO BID 30 Days Reported Eliquis (Apixaban) 2.5 Mg Tablet 2.5 Mg PO BID Flomax (Tamsulosin Hcl) 0.4 Mg Cap.er.24h 1 Cap PO DAILY Oxybutynin Chloride Er (Oxybutynin Chloride) 15 Mg Tab.er.24 1 Tab PO HS Symbicort 160-4.5 Mcg Inhaler (Budesonide/Formoterol Fumarate) 10.2 Gm Hfa.aer.ad 2 Puff IH BID Dulcolax (Bisacodyl) 5 Mg Tablet.dr 5 Mg PO HS PRN Proventil Hfa Inhaler (Albuterol Sulfate) 6.7 Gm Hfa.aer.ad 2 Puff IH PRN Q4HRS PRN Benicar (Olmesartan Medoxomil) 20 Mg Tablet 20 Mg PO BID Aspir 81 (Aspirin) 81 Mg Tablet.dr 1 Tab PO HS Temazepam 15 Mg Capsule 30 Mg PO QHS Sotalol (Sotalol Hcl) 80 Mg Tablet 60 Mg PO BID Allergies Allergies: Coded Allergies: Iodine and Iodide Containing Produc (Verified Allergy, Severe, Swelling, 11/08/17) naproxen (Verified Allergy, Severe, throat swells and hives, 11/10/17) hydrocodone (Verified Allergy, Intermediate, hives, 11/10/17) takes oxycodone at home lisinopril (Verified Allergy, Intermediate, cough, 11/10/17) Vitals VITALS Vital Signs Date Time Temp Pulse Resp B/P (MAP) Pulse Ox O2 Delivery O2 Flow Rate FiO2 06/20/19 11:03 95 Room Air 06/20/19 10:59 97.7 61 18 165/93 (117) 97.7 Labs Labs Laboratory Tests Test 06/19/19 14:45 06/19/19 15:10 06/20/19 04:30 Stool Occult Blood Positive (NEG) White Blood Count 8.3 x10^3/uL (4.0-11.0) 6.4 x10^3/uL (4.0-11.0) Red Blood Count 5.07 x10^6/uL (4.30-5.70) 4.56 x10^6/uL (4.30-5.70) Hemoglobin 16.0 g/dL (13.0-17.5) 14.4 g/dL (13.0-17.5) Hematocrit 47.0 % (39.0-53.0) 42.6 % (39.0-53.0) Mean Corpuscular Volume 93 fL (79-100) 93 fL (79-100) Mean Corpuscular Hemoglobin 32 pg (25-35) 32 pg (25-35) Mean Corpuscular Hemoglobin Concent 34 g/dL (31-37) 34 g/dL (31-37) Red Cell Distribution Width 14.2 % (11.5-14.5) 14.0 % (11.5-14.5) Platelet Count 191 x10^3/uL (140-400) 151 x10^3/uL (140-400) Neutrophils (%) (Auto) 79 % (31-73) 63 % (31-73) Lymphocytes (%) (Auto) 12 % (24-48) 22 % (24-48) Monocytes (%) (Auto) 7 % (0-9) 10 % (0-9) Eosinophils (%) (Auto) 2 % (0-3) 4 % (0-3) Basophils (%) (Auto) 1 % (0-3) 1 % (0-3) Neutrophils # (Auto) 6.5 x10^3/uL (1.8-7.7) 4.0 x10^3/uL (1.8-7.7) Lymphocytes # (Auto) 1.0 x10^3/uL (1.0-4.8) 1.4 x10^3/uL (1.0-4.8) Monocytes # (Auto) 0.6 x10^3/uL (0.0-1.1) 0.7 x10^3/uL (0.0-1.1) Eosinophils # (Auto) 0.2 x10^3/uL (0.0-0.7) 0.2 x10^3/uL (0.0-0.7) Basophils # (Auto) 0.0 x10^3/uL (0.0-0.2) 0.0 x10^3/uL (0.0-0.2) Prothrombin Time 15.2 SEC (11.7-14.0) Prothromb Time International Ratio 1.2 (0.8-1.1) Activated Partial Thromboplast Time 32 SEC (24-38) Sodium Level 139 mmol/L (136-145) 143 mmol/L (136-145) Potassium Level 4.4 mmol/L (3.5-5.1) 4.0 mmol/L (3.5-5.1) Chloride Level 103 mmol/L (98-107) 108 mmol/L (98-107) Carbon Dioxide Level 27 mmol/L (21-32) 28 mmol/L (21-32) Anion Gap 9 (6-14) 7 (6-14) Blood Urea Nitrogen 25 mg/dL (8-26) 19 mg/dL (8-26) Creatinine 1.4 mg/dL (0.7-1.3) 1.0 mg/dL (0.7-1.3) Estimated GFR (Cockcroft-Gault) 49.0 72.3 Glucose Level 111 mg/dL (70-99) 96 mg/dL (70-99) Calcium Level 9.0 mg/dL (8.5-10.1) 8.5 mg/dL (8.5-10.1) Laboratory Tests Test 06/19/19 14:45 06/19/19 15:10 06/20/19 04:30 Stool Occult Blood Positive (NEG) White Blood Count 8.3 x10^3/uL (4.0-11.0) 6.4 x10^3/uL (4.0-11.0) Red Blood Count 5.07 x10^6/uL (4.30-5.70) 4.56 x10^6/uL (4.30-5.70) Hemoglobin 16.0 g/dL (13.0-17.5) 14.4 g/dL (13.0-17.5) Hematocrit 47.0 % (39.0-53.0) 42.6 % (39.0-53.0) Mean Corpuscular Volume 93 fL (79-100) 93 fL (79-100) Mean Corpuscular Hemoglobin 32 pg (25-35) 32 pg (25-35) Mean Corpuscular Hemoglobin Concent 34 g/dL (31-37) 34 g/dL (31-37) Red Cell Distribution Width 14.2 % (11.5-14.5) 14.0 % (11.5-14.5) Platelet Count 191 x10^3/uL (140-400) 151 x10^3/uL (140-400) Neutrophils (%) (Auto) 79 % (31-73) 63 % (31-73) Lymphocytes (%) (Auto) 12 % (24-48) 22 % (24-48) Monocytes (%) (Auto) 7 % (0-9) 10 % (0-9) Eosinophils (%) (Auto) 2 % (0-3) 4 % (0-3) Basophils (%) (Auto) 1 % (0-3) 1 % (0-3) Neutrophils # (Auto) 6.5 x10^3/uL (1.8-7.7) 4.0 x10^3/uL (1.8-7.7) Lymphocytes # (Auto) 1.0 x10^3/uL (1.0-4.8) 1.4 x10^3/uL (1.0-4.8) Monocytes # (Auto) 0.6 x10^3/uL (0.0-1.1) 0.7 x10^3/uL (0.0-1.1) Eosinophils # (Auto) 0.2 x10^3/uL (0.0-0.7) 0.2 x10^3/uL (0.0-0.7) Basophils # (Auto) 0.0 x10^3/uL (0.0-0.2) 0.0 x10^3/uL (0.0-0.2) Prothrombin Time 15.2 SEC (11.7-14.0) Prothromb Time International Ratio 1.2 (0.8-1.1) Activated Partial Thromboplast Time 32 SEC (24-38) Sodium Level 139 mmol/L (136-145) 143 mmol/L (136-145) Potassium Level 4.4 mmol/L (3.5-5.1) 4.0 mmol/L (3.5-5.1) Chloride Level 103 mmol/L (98-107) 108 mmol/L (98-107) Carbon Dioxide Level 27 mmol/L (21-32) 28 mmol/L (21-32) Anion Gap 9 (6-14) 7 (6-14) Blood Urea Nitrogen 25 mg/dL (8-26) 19 mg/dL (8-26) Creatinine 1.4 mg/dL (0.7-1.3) 1.0 mg/dL (0.7-1.3) Estimated GFR (Cockcroft-Gault) 49.0 72.3 Glucose Level 111 mg/dL (70-99) 96 mg/dL (70-99) Calcium Level 9.0 mg/dL (8.5-10.1) 8.5 mg/dL (8.5-10.1) Assessment/Plan Assessment/Plan Rectal bleed- with anticoagulation. Most likely secondary to stercoral ulcer with constipation and/or hemorrhoids. malignancy, ischemic colitis, and/or diverticualr disease possible as well Plan advance diet o/p colonosopcy if bleeding resumes Full ntoe dictated NASREEN HARDIN MD Jun 20, 2019 13:48
[2019-06-20 15:00] VITALS: BP 154/84
[2019-06-20] MEDS ORDERED: DOCUSATE SODIUM 100 MG CAPSULE. PO PRN (16:15)
[2019-06-20] MEDS ORDERED: POLYETHYLENE GLYCOL 3350 17 GM PACKET. PO ONE (16:30)
[2019-06-20 19:00] VITALS: BP 129/76
[2019-06-20] MEDS ORDERED: ASPIRIN ENTERIC COATED 81 MG TABLET.DR. PO SCH (21:00)
[2019-06-20] MEDS: TEMAZEPAM 15 MG CAPSULE PO SCH (22:02)
[2019-06-20] MEDS: ATORVASTATIN CALCIUM 40 MG TABLET. PO SCH (22:03)
[2019-06-20] MEDS: PSYLLIUM HUSK (SUGAR FREE) 1 PKT PACKET PO SCH (22:05)
[2019-06-20 23:00] VITALS: BP 122/68
[2019-06-21] MEDS: IV NORMAL SALINE 1000ML BAG 1,000 ML IV SCH ×2 (00:13→09:59)
[2019-06-21 03:00] VITALS: BP 135/69
--- NOTE | 2019-06-21 03:29 | CONS ---
DATE OF CONSULTATION: 06/20/2019 REASON FOR CONSULTATION: Rectal bleeding. HISTORY OF PRESENT ILLNESS: A 79-year-old male with past medical history significant for organic heart disease, AFib, hypertension, VA, bronchitis, diverticular disease and colonic polyps, has been placed on blood thinners after a recent heart cath. Bleeding was over a period of 4 days, was accompanied by significant constipation. When he moved his bowels first, he had significant amount of bleeding, which did not stop, he subsequently came to the Emergency Room, has been evaluated, stabilized and treated as an inpatient. His hemoglobin going from 16 to 14.4. Denies any pain at the present time, he is hungry and wishes to eat. He otherwise has no additional complaints. PAST MEDICAL HISTORY: Organic heart disease, hypertension, VA, AFib, bronchitis, status post CABG, history of colonic polyps. MEDICATIONS: Presently include losartan, tamsulosin, Ditropan, Restoril, Betapace, Ranexa, diclofenac, Lipitor, albuterol, budesonide. SOCIAL HISTORY: Retired. Does not drink or smoke. FAMILY HISTORY: Noncontributory. REVIEW OF SYSTEMS: Per records. PHYSICAL EXAMINATION: GENERAL: Reveals a well-nourished, well-developed male who is alert, cooperative, in no acute distress. VITAL SIGNS: Temperature 97.7, pulse 65, respiratory rate 18. HEENT: Reveals normocephalic, atraumatic head. Pupils and extraocular muscles are not tested. Sclerae anicteric. NECK: Supple. LUNGS: Clear. CARDIOVASCULAR: Reveals S1, S2 without S3, S4 or appreciable murmur. ABDOMEN: Reveals a soft abdomen, normal bowel sounds, without appreciable hepatosplenomegaly. EXTREMITIES: Reveals no cyanosis, clubbing or edema. LABORATORY STUDIES: Hemoglobin is 14.4, white count 6.4, platelet count 151,000. INR is 1.2, sodium 143, potassium 4.0, chloride 108, BUN is 19, creatinine 1.0, glucose 96, calcium is 8.5. IMPRESSION: Rectal bleeding, most likely secondary to hemorrhoidal and/or stercoral ulcer, diverticular disease, recurrent polyps, ischemic colitis, colon cancer in the differential. Recommend serial blood counts, advance the patient's diet and the patient has ongoing bleeding, interval colonoscopy, preferably as an outpatient would be pursued. NASREEN HARDIN MD DR: Ranjana JOB#: [id number] / [id number]
[2019-06-21 07:00] VITALS: BP 178/91
[2019-06-21] MEDS: BUDESONIDE 0.5 MG/2 ML NEBU. NEB SCH (07:54)
[2019-06-21] MEDS: ALBUTEROL SULFATE 2.5 MG/3 ML NEBU. NEB SCH ×2 (07:54→11:38)
[2019-06-21] MEDS ORDERED: CLOPIDOGREL BISULFATE 75 MG TABLET PO SCH (09:00)
[2019-06-21] MEDS ORDERED: POLYETHYLENE GLYCOL 3350 17 GM PACKET. PO SCH (09:00)
[2019-06-21] MEDS ORDERED: APIXABAN 2.5 MG TABLET. PO SCH (09:00)
[2019-06-21] MEDS: OXYBUTYNIN CHLORIDE 5 MG TABLET PO SCH (09:44)
[2019-06-21] MEDS: DICLOFENAC SODIUM 1% TOPICAL GEL 100GM TUBE. TP SCH (09:44)
[2019-06-21] MEDS: TAMSULOSIN 0.4 MG CAP.ER.24H. PO SCH (09:45)
[2019-06-21] MEDS: RANOLAZINE 500 MG TAB.ER.12H PO SCH (09:45)
[2019-06-21] MEDS: SOTALOL 80 MG TABLET. PO SCH (09:46)
[2019-06-21] MEDS: LOSARTAN POTASSIUM 50 MG TABLET. PO SCH (09:47)
[2019-06-21 12:00] VITALS: BP 154/93
--- NOTE | 2019-06-21 12:37 | PDOC3 ---
Discharge Summary Visit Information Date of Admission: Jun 19, 2019 Date of Discharge: Jun 21, 2019 Admitting Diagnosis Comment: 1. Rectal bleed: Hgb stable 2. CAD past CABG. recent LHC as noted above with patent LAD stent. Chronically occluded SVG to RCA but with collateralization. Clinically stable. 2. PAFIB; Maintaining SR per EKG 3. Hypertension; labile 4. Hyperlipidemia; on zetia. not previously been on statin 5. SSS s/p PPM Final Diagnosis Problems Medical Problems: (1) Afib Status: Chronic (2) LISANDRO (acute kidney injury) Status: Acute (3) Anticoagulated Status: Acute (4) Dyslipidemia Status: Chronic (5) HTN (hypertension) Status: Chronic (6) Left knee pain Status: Chronic (7) Lower GI bleeding Status: Acute (8) Orthostatic hypotension Status: Acute Brief Hospital Course Allergies Allergies Coded Allergies Type Severity Reaction Last Updated Verified Iodine and Iodide Containing Produc Allergy Severe Swelling 11/08/17 Yes naproxen Allergy Severe throat swells and hives 11/10/17 Yes hydrocodone Allergy Intermediate hives 11/10/17 Yes lisinopril Allergy Intermediate cough 11/10/17 Yes Vital Signs Vital Signs Date Time Temp Pulse Resp B/P (MAP) Pulse Ox O2 Delivery O2 Flow Rate FiO2 06/21/19 12:00 97.7 89 18 154/93 (113) 96 Room Air 97.7 Lab Results Laboratory Tests Test 06/19/19 14:45 06/19/19 15:10 06/20/19 04:30 Stool Occult Blood Positive (NEG) White Blood Count 8.3 x10^3/uL (4.0-11.0) 6.4 x10^3/uL (4.0-11.0) Red Blood Count 5.07 x10^6/uL (4.30-5.70) 4.56 x10^6/uL (4.30-5.70) Hemoglobin 16.0 g/dL (13.0-17.5) 14.4 g/dL (13.0-17.5) Hematocrit 47.0 % (39.0-53.0) 42.6 % (39.0-53.0) Mean Corpuscular Volume 93 fL (79-100) 93 fL (79-100) Mean Corpuscular Hemoglobin 32 pg (25-35) 32 pg (25-35) Mean Corpuscular Hemoglobin Concent 34 g/dL (31-37) 34 g/dL (31-37) Red Cell Distribution Width 14.2 % (11.5-14.5) 14.0 % (11.5-14.5) Platelet Count 191 x10^3/uL (140-400) 151 x10^3/uL (140-400) Neutrophils (%) (Auto) 79 % (31-73) 63 % (31-73) Lymphocytes (%) (Auto) 12 % (24-48) 22 % (24-48) Monocytes (%) (Auto) 7 % (0-9) 10 % (0-9) Eosinophils (%) (Auto) 2 % (0-3) 4 % (0-3) Basophils (%) (Auto) 1 % (0-3) 1 % (0-3) Neutrophils # (Auto) 6.5 x10^3/uL (1.8-7.7) 4.0 x10^3/uL (1.8-7.7) Lymphocytes # (Auto) 1.0 x10^3/uL (1.0-4.8) 1.4 x10^3/uL (1.0-4.8) Monocytes # (Auto) 0.6 x10^3/uL (0.0-1.1) 0.7 x10^3/uL (0.0-1.1) Eosinophils # (Auto) 0.2 x10^3/uL (0.0-0.7) 0.2 x10^3/uL (0.0-0.7) Basophils # (Auto) 0.0 x10^3/uL (0.0-0.2) 0.0 x10^3/uL (0.0-0.2) Prothrombin Time 15.2 SEC (11.7-14.0) Prothromb Time International Ratio 1.2 (0.8-1.1) Activated Partial Thromboplast Time 32 SEC (24-38) Sodium Level 139 mmol/L (136-145) 143 mmol/L (136-145) Potassium Level 4.4 mmol/L (3.5-5.1) 4.0 mmol/L (3.5-5.1) Chloride Level 103 mmol/L (98-107) 108 mmol/L (98-107) Carbon Dioxide Level 27 mmol/L (21-32) 28 mmol/L (21-32) Anion Gap 9 (6-14) 7 (6-14) Blood Urea Nitrogen 25 mg/dL (8-26) 19 mg/dL (8-26) Creatinine 1.4 mg/dL (0.7-1.3) 1.0 mg/dL (0.7-1.3) Estimated GFR (Cockcroft-Gault) 49.0 72.3 Glucose Level 111 mg/dL (70-99) 96 mg/dL (70-99) Calcium Level 9.0 mg/dL (8.5-10.1) 8.5 mg/dL (8.5-10.1) Brief Hospital Course Mr. Schumacher is a 79 old pleasant male who is on asa 81, eliquis 2.5 and plavix for CAD, pacer etc, Seeing DR Geeta hamilton 1 yr now. HAd mixed melena and BRBPR, Hemodynamically stable, NO BT needed, Hgb on dc was 12 or 14, Advised STOP plavix but may cont Eliquis and asa 81. Basilio RN and SHANICE Alejandra, And ,\ Agreeable to plan, NO meds needed COnt cardiac rehab as u are doing Home independent with Wishes to have OP c scope and GI arranging that Pt seen and examined COnsults: gi, cards Proc none (no ct abd even) Discharge Information Condition at Discharge: Improved, Stable Follow Up: Weeks (GI as instrcuted for OP C scope) Disposition/Orders: D/C to Home Scheduled Apixaban (Eliquis) 2.5 Mg Tablet, 2.5 MG PO BID for afib, (Reported) Entered as Reported by: KENDALL ENGLISH on 06/13/19 1120 Last Action: Continued on 06/20/191613 by REGINALDO ANAYA Aspirin (Aspir 81) 81 Mg Tablet., 1 TAB PO HS for CAD, #30 Ref 5 (Reported) Entered as Reported by: MANJIT CHAVARRIA on 10/03/14 1719 Last Action: Continued on 06/20/191613 by REGINALDO ANAYA Atorvastatin Calcium (Lipitor) 40 Mg Tablet, 1 TAB PO QHS for coronary artery disease, #90 Ref 2 Prescribed by: TONY LEON APRN on 06/14/19 1215 Last Action: Continued on 06/19/191613 by GUERDA CORNELIUS MD Budesonide/Formoterol Fumarate (Symbicort 160-4.5 Mcg Inhaler) 10.2 Gm Hfa.aer.ad, 2 PUFF IH BID for COPD, #10.6 Ref 3 (Reported) Entered as Reported by: KENDALL ENGLISH on 06/13/19 1120 Last Action: Converted on 06/19/191613 by GUERDA CORNELIUS MD Diclofenac Sodium (Voltaren) 100 Gm Gel..gram., 1 MYRON TP BID for Osteoarthritis left knee for 30 Days, #60 Ref 5 Prescribed by: GUERDA CORNELIUS MD on 06/14/19 1257 Last Action: Continued on 06/19/191613 by GUERDA CORNELIUS MD Olmesartan Medoxomil (Benicar) 20 Mg Tablet, 20 MG PO BID for blood pressure, (Reported) Entered as Reported by: RADHA RANDALL on 11/28/16 1333 Last Action: Converted on 06/19/19 1628 by GUERDA CORNELIUS MD Oxybutynin Chloride (Oxybutynin Chloride Er) 15 Mg Tab.er.24, 1 TAB PO HS for BLADDER SPASMS, #90 Ref 1 (Reported) Entered as Reported by: KENDALL ENGLISH on 06/13/19 1120 Last Action: Converted on 06/19/19 162 by GUERDA CORNELIUS MD Ranolazine (Ranexa) 500 Mg Tab.er.12h, 1 TAB PO BID for coronary artery disease for 30 Days, #60 Ref 2 Prescribed by: TONY LEON APRN on 06/14/19 1215 Last Action: Continued on 06/19/191613 by GUERDA CORNELIUS MD Sotalol Hcl (Sotalol) 80 Mg Tablet, 60 MG PO BID for afib, (Reported) Entered as Reported by: MANJIT CHAVARRIA on 10/03/14 1719 Last Action: Continued on 06/19/19 161 by GUERDA CORNELIUS MD Tamsulosin Hcl (Flomax) 0.4 Mg Cap.er.24h, 1 CAP PO DAILY for retention, #30 Ref 11 (Reported) Entered as Reported by: KENDALL ENGLISH on 06/13/19 1120 Last Action: Continued on 06/19/191613 by GUERDA CORNELIUS MD Temazepam (Temazepam) 15 Mg Capsule, 30 MG PO QHS for INSOMNIA, #30 Ref 1 (Reported) Entered as Reported by: MANJIT CHAVARRIA on 10/03/141718 Last Action: Continued on 06/19/191613 by GUERDA CORNELIUS MD Scheduled PRN Albuterol Sulfate (Proventil Hfa Inhaler) 6.7 Gm Hfa.aer.ad, 2 PUFF IH PRN Q4HRS PRN for SHORTNESS OF BREATH, Ref 0 (Reported) Entered as Reported by: RADHA RANDALL on 11/28/161335 Last Action: Continued on 06/19/191613 by GUERDA CORNELIUS MD Bisacodyl (Dulcolax) 5 Mg Tablet.dr, 5 MG PO HS PRN for CONSTIPATION, Ref 0 (Reported) Entered as Reported by: RADHA RANDALL on 11/28/161335 Last Action: Continued on 06/19/191613 by GUERDA CORNELIUS MD Discontinued Medications Clopidogrel Bisulfate (Clopidogrel) 75 Mg Tablet, 1 TAB PO DAILY for CAD, #90 Ref 3 Prescribed by: GUERDA CORNELIUS MD on 06/14/19 1301 Last Action: Continued on 06/20/191613 by REGINALDO ANAYA Ezetimibe (Zetia) 10 Mg Tablet, 10 MG PO DAILY, (Reported) Entered as Reported by: MANJIT CHAVARRIA on 10/03/141718 CINDY WALKER MD Jun 21, 2019 12:37
--- NOTE | 2019-06-21 12:59 | PDOC ---
Subjective: Subjective: No bleeding. Would like to go home. present - Plavix stopped, wanting to resume Eliquis and ASA and pursue outpt colonoscopy in a few weeks. Objective: Vital Signs: Vital Signs Date Time Temp Pulse Resp B/P (MAP) Pulse Ox O2 Delivery O2 Flow Rate FiO2 06/21/19 12:00 97.7 89 18 154/93 (113) 96 Room Air 97.7 PE: GEN: NAD LUNGS: CTAB HEART: RRR ABD: NABS, S/ND/NT NEURO/PSYCH: A & O 3 A/P: Rectal bleeding - resolved, Hgb stable (checked 06/20) CAD, A Fib -- Reviewed w/ Dr. Kruse - okay to DC and resume Eliquis and ASA. Follow-up for outpt colonoscopy - our office can arrange. SABINE CAGLE Jun 21, 2019 12:59
--- NOTE | 2019-06-21 13:53 | PDOC ---
TONY LEON APRN 06/21/19 1353: CARDIO Progress Notes Date and Time Date of Service 06/21/19 Time of Evaluation 1200 Subjective Subjective: No Chest Pain, No shortness of breath, No Palpitations Vitals Vitals Vital Signs Date Time Temp Pulse Resp B/P (MAP) Pulse Ox O2 Delivery O2 Flow Rate FiO2 06/21/19 12:00 97.7 89 18 154/93 (113) 96 Room Air 97.7 Weight Weight [ ] Input and Output Intake and Output Intake and Output 06/21/19 07:00 Intake Total 1940 ml Balance 1940 ml Intake Oral 940 ml IV Total 1000 ml # Voids 3 Physical Exam HEENT: Neck Supple W Full Motion Chest: Symmetric LUNGS: Clear to Auscultation Heart: S1S2, RRR, irregularly irregular Abdomen: Soft N/T Extremities: No Edema Neurology: alert, oriented, follow commands Assessment Assessment 1. Rectal bleed: Hgb stable 2. CAD past CABG. recent LHC with patent LAD stent. Chronically occluded SVG to RCA but with collateralization. Clinically stable. 2. PAFIB; Maintaining SR per EKG 3. Hypertension; labile 4. Hyperlipidemia; statin therapy 5. SSS s/p PPM; recent device check normal function. One episode of AF since 01/2019 Recommendations Resume Eliquis, ASA Continue Sotalol, Ranexa, statin May discharge from a CV standpoint and f/u in our office with Dr. Campoverde as scheduled. ROD CAMPOVERDE MD 06/21/19 194: CARDIO Progress Notes Assessment Assessment Patient seen and examined. Agree with EMAIL DESIGNER's assessment and plan CAD stable PAF maintaining sinus rhythm OK to hold plavix. Resume eliquis and f/u with out office as scheduled TONY LEON APRN Jun 21, 2019 13:53 ROD CAMPOVERDE MD Jun 21, 2019 19:42
--- NOTE | 2019-06-21 14:22 | NUR ---
SW following. Discussed with RN, pt is a readmit. Possible outpatient colonoscopy needed. RN advised no SW needs and is working on pt's discharge home with .
[2019-06-28] MEDS ORDERED: POLY17PO29 PO (01:50)
[2019-06-28] MEDS ORDERED: PSYL0.5215 PO (01:51)
[2019-06-28] MEDS ORDERED: SODI100P2 DT (01:53)
[2019-06-28] MEDS ORDERED: SERT50TA PO (01:55)
[2019-06-29] MEDS ORDERED: RANO10002 PO (16:45)
[2019-06-30] MEDS ORDERED: LOSA-73 PO (15:45)
== END 2019-06-21 13:00 | disposition home or self-care (01) | DRG 377 ==
LOC: ER 14:23 → 5 SOUTH 15:55
PROVIDERS: ADMIT Internal Medicine; ATTEND Internal Medicine
DX: K92.1 Melena (principal); N17.0 Acute kidney failure with tubular necrosis; I25.810 Atherosclerosis of coronary artery bypass graft(s) without angina pectoris; I48.91 Unspecified atrial fibrillation; F41.9 Anxiety disorder, unspecified; G47.00 Insomnia, unspecified; E78.00 Pure hypercholesterolemia, unspecified; M19.90 Unspecified osteoarthritis, unspecified site; M25.562 Pain in left knee; K80.20 Calculus of gallbladder without cholecystitis without obstruction; K64.9 Unspecified hemorrhoids; K59.00 Constipation, unspecified; K57.90 Diverticulosis of intestine, part unspecified, without perforation or abscess without bleeding; I10 Essential (primary) hypertension; E78.5 Hyperlipidemia, unspecified; I49.5 Sick sinus syndrome; J44.9 Chronic obstructive pulmonary disease, unspecified; I48.0 Paroxysmal atrial fibrillation; I95.1 Orthostatic hypotension; Z87.19 Personal history of other diseases of the digestive system; Z82.49 Family history of ischemic heart disease and other diseases of the circulatory system; Z79.82 Long term (current) use of aspirin; Z79.01 Long term (current) use of anticoagulants; Z95.5 Presence of coronary angioplasty implant and graft; Z95.0 Presence of cardiac pacemaker; Z85.820 Personal history of malignant melanoma of skin; Z88.5 Allergy status to narcotic agent; Z88.8 Allergy status to other drugs, medicaments and biological substances; Z88.6 Allergy status to analgesic agent; Z91.041 Radiographic dye allergy status
CPT/HCPCS: 36415; 80048; 82274; 85025; 85610; 85730; 86850; 86900; 86901; 93005; 94640; 94760; J7030; J7613; J7626; 99285-25; G0378